=== PATIENT | female | born 1945 | race Caucasian/White ===

== ENCOUNTER → 2021-03-23 | Outpatient (CLI) | payer MEDICARE, OTHER ==
--- NOTE | 2021-03-23 11:04 | Diagnostic Imaging Report ---
Indication: Fall with right ankle pain. Time of exam: 10:50 AM 3 views of the right ankle were obtained. Alignment is normal. Ankle mortise is well maintained. Talar dome is smooth. No fracture or dislocation is identified. There is soft tissue swelling about the medial and lateral ankle. There is a large plantar calcaneal spur. Impression: Soft tissue swelling. No acute bony abnormality is detected. Dictated by: Dictated on workstation # [id number]
--- NOTE | 2021-03-23 11:18 | Diagnostic Imaging Report ---
Indication: Fall with right foot pain. Time of exam: 10:52 AM There appears to be some soft tissue swelling along the dorsum of the foot. There is a large plantar calcaneal spur. There is a lucency through the lateral and anterior portion of the cuboid, suspicious for a fracture. The metatarsals are intact. There are fractures involving multiple toes. There is a fracture at the base of the proximal phalanx of the 3rd toe, nondisplaced. There is also fracture in the proximal aspect of the proximal phalanx of the 4th toe, nondisplaced. There is an obliquely oriented fracture of the distal aspect of the proximal phalanx of the 5th toe. In addition, there is a chip type fracture at the base of the proximal phalanx of the 5th toe, medial side. IMPRESSION: 1. Fractures involving the 3rd through 5th toes, as described. 2. Questionable fracture of the cuboid. No other abnormalities are seen. Dictated by: Dictated on workstation # [id number]
--- NOTE | 2021-03-23 11:24 | Diagnostic Imaging Report ---
INDICATION: Fall with right leg pain. Time of exam 10:54 a.m. Frontal and lateral views of the right tibia and fibula were obtained. Alignment at the knee and ankle is normal. The tibia and fibula appear intact. No fractures are identified. IMPRESSION: No acute bony abnormality is detected. Dictated by: Dictated on workstation # [id number]
== END ==
LOC: RAD FS 10:32
PROVIDERS: ATTEND Nurse Practitioner Family
DX: S92.911A Unspecified fracture of right toe(s), initial encounter for closed fracture (principal); S89.91XA Unspecified injury of right lower leg, initial encounter; W19.XXXA Unspecified fall, initial encounter
CPT/HCPCS: 73590; 73610; 73630

== ENCOUNTER → 2021-04-10 | Outpatient (CLI) | payer MEDICARE, OTHER ==
--- NOTE | 2021-04-10 10:35 | Diagnostic Imaging Report ---
INDICATION: Follow-up fractures COMPARISON: 03/23/2021 FINDINGS: 3 radiographic views of the right foot were obtained. Again identified are fractures of the 3rd, 4th, and 5th proximal phalanges. There is slight displacement of the proximal medial fracture fragment of the 5th proximal phalanx. Alignment of the larger distal fracture is improved when compared to prior exam. There is no significant displacement of the 3rd or 4th phalangeal fracture fragments. Note is also made of subtle intra-articular hairline fracture of the 5th distal phalanx. There is no appreciable bridging callus formation or other evidence of significant interval healing. No new acute fracture or dislocation is seen. No unexpected radiopaque foreign bodies are identified. Soft tissue swelling is improved. IMPRESSION: 1. Redemonstration nonacute fractures of the 3rd through 5th toes as described above. Dictated by: Dictated on workstation # [id number]
== END ==
LOC: RAD FS 09:30
PROVIDERS: ATTEND Nurse Practitioner
DX: S92.511D Displaced fracture of proximal phalanx of right lesser toe(s), subsequent encounter for fracture with routine healing (principal); S92.424D Nondisplaced fracture of distal phalanx of right great toe, subsequent encounter for fracture with routine healing; X58.XXXD Exposure to other specified factors, subsequent encounter
CPT/HCPCS: 73630

== ENCOUNTER → 2021-05-04 | Outpatient (CLI) | payer MEDICARE, OTHER ==
--- NOTE | 2021-05-04 09:06 | Diagnostic Imaging Report ---
INDICATION: Fracture, followup. TECHNIQUE: 3 views of the right foot CORRELATION STUDY: 04/10/2021 FINDINGS: Comminuted, displaced fractures involving the proximal phalanges of the 3rd, 4th and 5th toes are again demonstrated. Fracture lines are still well visualized without significant interval healing from prior. The 3rd and 4th metatarsal fractures appear generally stable in their alignment. The 5th proximal phalanx fracture demonstrates perhaps slight progressive displacement along the main fracture line and some progressive retraction of the distal fracture fragment. No new bony abnormality. Some residual generalized soft tissue edema. IMPRESSION: 1. No appreciable interval healing in the proximal phalangeal fractures of the 3rd through 5th toes. May be slight progressive offset at the 5th proximal phalanx fracture. Dictated by: Dictated on workstation # [id number]
== END ==
LOC: RAD FS 08:38
PROVIDERS: ATTEND Nurse Practitioner
DX: S92.511D Displaced fracture of proximal phalanx of right lesser toe(s), subsequent encounter for fracture with routine healing (principal); S92.424D Nondisplaced fracture of distal phalanx of right great toe, subsequent encounter for fracture with routine healing; X58.XXXD Exposure to other specified factors, subsequent encounter
CPT/HCPCS: 73630

== ENCOUNTER 2021-08-02 17:37 | Inpatient (IN) | payer MEDICARE, OTHER ==
[~2021-08-02] VITALS: Ht 163 cm; Wt 93.1 kg
--- NOTE | 2021-08-02 17:56 | ED Respiratory ---
General Chief Complaint: Respiratory Problems Stated Complaint: SOB,HIGH BP,FEET SWELLING Source: patient Exam Limitations: no limitations History of Present Illness Date Seen by Provider: Aug 02, 2021 Time Seen by Provider: 17:41 Initial Comments 76yoF with PMH of DM, afib on Warfarin, HTN, HLD coming in due to SOB. Started feeling more SOB yesterday, and noticed today that feet and shins are more swollen which is abnormal. Typically improves with her diuretic but this did not help today. More SOB with ambulation today so came in to the ER. Did take her lasix today. Denies any chest pain associated with it, fever, cough, vomiting, diarrhea, focal weakness or numbness, or any other concerns. Denies any previo us history of blood clots. Unsure if she has heart failure, but she does follow with a black oxide operator in [place]. Allergies and Home Medications Allergies Coded Allergies: acetaminophen (Verified Allergy, Unknown, Shortness of Breath, 08/02/21) hydrocodone (Verified Allergy, Unknown, Shortness of Breath, 08/02/21) levofloxacin (Verified Allergy, Unknown, Shortness of Breath, 08/02/21) Nausea/vomiting, SOB propoxyphene (Verified Allergy, Unknown, Shortness of Breath, 08/02/21) codeine (Verified Adverse Reaction, Unknown, Nausea, 08/02/21) Nausea and Vomiting cyclobenzaprine (Verified Adverse Reaction, Unknown, Vomiting, 08/02/21) Nausea/Vomiting oxycodone (Verified Adverse Reaction, Unknown, Shortness of Breath, 08/02/21) Nausea/Vomiting Uncoded Allergies: IVP DYE (Allergy, Unknown, Anaphylaxis, 08/02/21) Tramado (Adverse Reaction, Unknown, Vomiting, 08/02/21) Nausea/Vomiting Patient Home Medication List Home Medication List Reviewed: Yes Review of Systems Review of Systems Constitutional: No chills, No fever EENTM: see HPI Respiratory: No cough; short of breath Cardiovascular: No chest pain, No palpitations Gastrointestinal: No abdominal pain, No diarrhea, No nausea, No vomiting Genitourinary: no symptoms reported Musculoskeletal: no symptoms reported Skin: no symptoms reported Psychiatric/Neurological: No Symptoms Reported Hematologic/Lymphatic: No Symptoms Reported Immunological/Allergic: no symptoms reported All Other Systems Reviewed Negative Unless Noted: Yes Past Uejaeor-Adbiyn-Htseek Hx Patient Social History Tobacco Use?: No Past Medical History Surgeries: Yes Section Physical Exam Vital Signs - First Documented 08/02/21 17:40 Temp 36.0 Pulse 95 Resp 35 B/P (MAP) 188/98 (128) Pulse Ox 95 O2 Delivery Nasal Cannula O2 Flow Rate 2.00 Capillary Refill : Height: '" Weight: lbs. oz. kg; BMI Method: General Appearance: WD/WN, no apparent distress Eyes: Bilateral Eye Normal Inspection HEENT: PERRL/EOMI, normal ENT inspection, pharynx normal Neck: non-tender, full range of motion, supple, normal inspection Respiratory: chest non-tender, normal breath sounds, no respiratory distress, no accessory muscle use, crackles Cardiovascular: no murmur, irregularly irregular Gastrointestinal: normal bowel sounds, non tender, soft; No guarding, No rebound Extremities: normal range of motion, non-tender, no calf tenderness, normal capillary refill, pedal edema, other (2+ edema up to the top of the shins) Neurologic/Psychiatric: no motor/sensory deficits, alert, normal mood/affect Skin: normal color, warm/dry Lymphatic: no adenopathy Progress/Results/Core Measures Suspected Sepsis SIRS Temperature: Pulse: Respiratory Rate: Laboratory Tests 08/02/21 17:52: White Blood Count 11.4H Blood Pressure / Mean: Laboratory Tests 08/02/21 17:52: Creatinine 0.84, INR Comment 3.0H, Platelet Count 358, Total Bilirubin 0.5 Results/Orders Lab Results Laboratory Tests Test 08/02/21 17:52 Range/Units White Blood Count 11.4 H 4.3-11.0 10^3/uL Red Blood Count 4.77 3.80-5.11 10^6/uL Hemoglobin 13.5 11.5-16.0 g/dL Hematocrit 41 35-52 % Mean Corpuscular Volume 86 80-99 fL Mean Corpuscular Hemoglobin 28 25-34 pg Mean Corpuscular Hemoglobin Concent 33 32-36 g/dL Red Cell Distribution Width 13.3 10.0-14.5 % Platelet Count 358 130-400 10^3/uL Mean Platelet Volume 9.4 9.0-12.2 fL Immature Granulocyte % (Auto) 0 % Neutrophils (%) (Auto) 61 42-75 % Lymphocytes (%) (Auto) 28 12-44 % Monocytes (%) (Auto) 7 0-12 % Eosinophils (%) (Auto) 3 0-10 % Basophils (%) (Auto) 1 0-10 % Neutrophils # (Auto) 7.0 1.8-7.8 X 10^3 Lymphocytes # (Auto) 3.2 1.0-4.0 X 10^3 Monocytes # (Auto) 0.8 0.0-1.0 X 10^3 Eosinophils # (Auto) 0.3 0.0-0.3 10^3/uL Basophils # (Auto) 0.1 0.0-0.1 10^3/uL Immature Granulocyte # (Auto) 0.1 0.0-0.1 10^3/uL Prothrombin Time 31.2 H 12.2-14.7 SEC INR Comment 3.0 H 0.8-1.4 Activated Partial Thromboplast Time 41 H 24-35 SEC Sodium Level 144 135-145 MMOL/L Potassium Level 4.0 3.6-5.0 MMOL/L Chloride Level 97 L 98-107 MMOL/L Carbon Dioxide Level 28 21-32 MMOL/L Anion Gap 19 H 5-14 MMOL/L Blood Urea Nitrogen 15 7-18 MG/DL Creatinine 0.84 0.60-1.30 MG/DL Estimat Glomerular Filtration Rate 66 BUN/Creatinine Ratio 18 Glucose Level 78 70-105 MG/DL Calcium Level 8.9 8.5-10.1 MG/DL Corrected Calcium 8.5-10.1 MG/DL Total Bilirubin 0.5 0.1-1.0 MG/DL Aspartate Amino Transf (AST/SGOT) 20 5-34 U/L Alanine Aminotransferase (ALT/SGPT) 12 0-55 U/L Alkaline Phosphatase 81 40-136 U/L Troponin I < 0.30 <0.30 NG/ML Pro-B-Type Natriuretic Peptide 836.0 H <75.0 PG/ML Total Protein 7.5 6.4-8.2 GM/DL Albumin 5.1 H 3.2-4.5 GM/DL My Orders Orders - MINERVA HERNÁNDEZ MD Cbc With Automated Diff (08/02/21 18:07) Comprehensive Metabolic Panel (08/02/21 18:07) Protime With Inr (08/02/21 18:07) Partial Thromboplastin Time (08/02/21 18:07) Probnp Fs (08/02/21 18:07) Troponin I Fs (08/02/21 18:07) Chest Pa/Lat (2 View) (08/02/21 18:07) Ed Iv/Invasive Line Start (08/02/21 18:07) Ekg Tracing (08/02/21 18:07) Monitor-Rhythm Ecg Trace Only (08/02/21 18:07) Furosemide Injection (Lasix Injection) (08/02/21 18:07) Nitroglycerin Ointment (Nitrobid Ointme (08/02/21 18:09) Acetaminophen Tablet (Tylenol Tablet) (08/02/21 19:30) Medications Given in ED Current Medications Medications Dose Ordered Sig/Michael Route Start Time Stop Time Status Last Admin Dose Admin Acetaminophen 1,000 mg ONCE ONCE PO 08/02/21 19:30 08/02/21 19:31 DC 08/02/21 19:32 1,000 MG Vital Signs/I&O 08/02/21 17:40 Temp 36.0 Pulse 95 Resp 35 B/P (MAP) 188/98 (128) Pulse Ox 95 O2 Delivery Nasal Cannula O2 Flow Rate 2.00 Capillary Refill : Progress Note : Progress Note 76-year-old female with above history coming in because she is short of breath. ABCs were intact and vitals were stable on presentation. She has chronic A. fib and her heart rate is in the 90s to low 100's. Blood pressure elevated. EKG without STEMI and is still in A. fib. She is rate controlled and anticoagulated and has not missed any doses of her medicines. Given Nitropaste more so for blood pressure control to see if that helps her dyspnea. She was also given IV Lasix to see if she has a better response to this. Differential includes volume overload versus atypical ACS versus pneumonia versus less likely pneumothorax versus much less likely PE given she is anticoagulated versus some other etiology. No history of lung disease and is not wheezing so will avoid any inhalers at this time. Labs significant for negative troponin, proBNP elevated greater than 800 that is consistent with volume overload and heart failure. Chest x-ray without any obvious focal abnormality such as pneumonia. Creatinine normal and electrolytes normal. She was given 40 mg of IV Lasix. Oxygen went down to high 80s and she required 2 L nasal cannula with good response to the mid 90s. Given her increased work of breathing, hypoxia, and volume overload, I believe she would benefit from a longer hospital stay with IV diuretics. Called and discussed the case with Dr. Jacobson who is willing to accept the patient and would like her to be inpatient status. ECG Initial ECG Impression Date: Aug 02, 2021 Initial ECG Impression Time: 17:42 Initial ECG Rate: 104 Initial ECG Rhythm: A Fib/Flutter Comment Atrial fibrillation, narrow QRS, normal axis, baseline wander making it difficult to interpret but there is some subtle ST depression in the lateral leads with no prior EKG to compare to Diagnostic Imaging Diagonstic Imaging: Xray Plain Films/CT/US/NM/MRI: chest Comments [facility], [place] NAME: KRISTIN DIAZ [facility] REC#: [id number] PT STATUS: REG ER : 1945 PHYSICIAN: MINERVA HERNÁNDEZ MD ADMIT DATE: 08/02/21/ER FS Draft Date of Exam:08/02/21 CHEST PA/LAT (2 VIEW) INDICATION: Shortness of breath. FINDINGS: There is mild cardiomegaly. There is some minimal discoid atelectasis in the left midlung. There is no pleural effusion, pneumothorax or pneumonia. The mediastinum is unremarkable. IMPRESSION: Cardiomegaly and some minimal discoid atelectasis and/or pneumonitis in the left midlung, otherwise unremarkable. Dictated on workstation # [id number] Dict: 08/02/211825 Trans: 08/02/21 183 [facility] [id number] Interpreted by: EDNA HA MD Electronically signed by: Departure Impression Primary Impression: CHF exacerbation Qualified Codes: I50.9 - Heart failure, unspecified Additional Impressions: Respiratory failure Qualified Codes: J96.01 - Acute respiratory failure with hypoxia Volume overload Qualified Codes: E87.70 - Fluid overload, unspecified Chronic a-fib Diabetes mellitus Qualified Codes: E11.9 - Type 2 diabetes mellitus without complications Disposition: 30 STILL A PATIENT Condition: Stable Admissions Decision to Admit Reason: Admit from ER (General) Decision to Admit/Date: Aug 02, 2021 Time/Decision to Admit Time: 19:15 Transfer Transfer Facility: Discussed with Dr. Jacobson at 20:30 who accepted her to her service as an inpatient. Method of Transfer: EMS Departure-Patient Inst. Referrals: REJI MANCILLA MD (PCP/Family) Primary Care Physician MINERVA HERNÁNDEZ MD Aug 02, 2021 17:56
[2021-08-02] MEDS ORDERED: FUROSEMIDE 40 MG/4 ML INJ (LASIX) IVP STA (18:07)
[2021-08-02] MEDS ORDERED: NITROGLYCERIN 2% OINT 1 GM UNIT DOSE PACKET TOP STA (18:09)
[2021-08-02 18:19] LABS: BASOPHILS % (AUTO) 1 % (0-10); EOSINOPHILS % (AUTO) 3 % (0-10); HEMATOCRIT 41 % (35-52); HEMOGLOBIN 13.5 g/dL (11.5-16.0); LYMPHOCYTES % (AUTO) 28 % (12-44); MEAN CORPUSCULAR HEMOGLOBIN 28 pg (25-34); MEAN CORPUSCULAR HGB CONC 33 g/dL (32-36); MEAN CORPUSCULAR VOLUME 86 fL (80-99); MEAN PLATELET VOLUME 9.4 fL (9.0-12.2); MONOCYTES % (AUTO) 7 % (0-12); NEUTROPHILS % (AUTO) 61 % (42-75); PLATELET COUNT 358 10^3/uL (130-400); WHITE BLOOD COUNT 11.4 10^3/uL (4.3-11.0)
[2021-08-02 18:20] LABS: BASOPHILS # (AUTO) 0.1 10^3/uL (0.0-0.1); EOSINOPHILS # (AUTO) 0.3 10^3/uL (0.0-0.3); LYMPHOCYTES # (AUTO) 3.2 X 10^3 (1.0-4.0); MONOCYTES # (AUTO) 0.8 X 10^3 (0.0-1.0)
[2021-08-02 18:24] LABS: PROTHROMBIN TIME PATIENT 31.2 SEC (12.2-14.7)
--- NOTE | 2021-08-02 18:35 | Diagnostic Imaging Report ---
INDICATION: Shortness of breath. FINDINGS: There is mild cardiomegaly. There is some minimal discoid atelectasis in the left midlung. There is no pleural effusion, pneumothorax or pneumonia. The mediastinum is unremarkable. IMPRESSION: Cardiomegaly and some minimal discoid atelectasis and/or pneumonitis in the left midlung, otherwise unremarkable. Dictated by: Dictated on workstation # [id number]
[2021-08-02 18:37] LABS: ALANINE AMINOTRANSFERASE 12 U/L (0-55); ALBUMIN 5.1 GM/DL (3.2-4.5); ALKALINE PHOSPHATASE 81 U/L (40-136); BILIRUBIN,TOTAL 0.5 MG/DL (0.1-1.0); BUN/CREATININE RATIO 18; CALCIUM 8.9 MG/DL (8.5-10.1); CARBON DIOXIDE 28 MMOL/L (21-32); CHLORIDE 97 MMOL/L (98-107); CREATININE SERUM 0.84 MG/DL (0.60-1.30); GFR ESTIMATED 66; GLUCOSE 78 MG/DL (70-105); SODIUM 144 MMOL/L (135-145); TOTAL PROTEIN 7.5 GM/DL (6.4-8.2)
[2021-08-02] MEDS ORDERED: ACETAMINOPHEN 500 MG TAB (TYLENOL) PO ONE (19:30)
[2021-08-02 22:23] VITALS: BP 154/81
[2021-08-02] MEDS ORDERED: CATHETER FLUSH 10 ML SYR IV PRN (22:30)
[2021-08-02] MEDS ORDERED: ALPRAZolam 0.5 MG (XANAX) TAB PO SCH (22:30)
[2021-08-02] MEDS: lisINopril 20 MG (PRINIVIL) TABLET PO SCH (22:44)
[2021-08-02 23:23] VITALS: BP 188/98
[2021-08-02] MEDS ORDERED: RT-ALBUTEROL/IPRATROPIUM 3 ML (DUONEB) VIAL INH PRN (23:30)
[2021-08-03 00:11] VITALS: BP 131/72
[2021-08-03] MEDS ORDERED: IBUPROFEN 600 MG (MOTRIN) TAB PO ONE (00:15)
[2021-08-03] MEDS ORDERED: ROSU20TA32 PO (01:03)
[2021-08-03] MEDS ORDERED: GLIP10TA13 PO (01:03)
[2021-08-03] MEDS ORDERED: PROP20TA5 PO (01:03)
[2021-08-03] MEDS ORDERED: METO50TA7 PO (01:03)
[2021-08-03] MEDS ORDERED: ALPR0.5T7 PO (01:03)
[2021-08-03] MEDS ORDERED: LISI20TA26 PO (01:03)
[2021-08-03] MEDS ORDERED: PANT40TA52 PO (01:03)
[2021-08-03] MEDS ORDERED: FURO40TA4 PO (01:03)
[2021-08-03] MEDS ORDERED: METF-397 PO (01:03)
[2021-08-03] MEDS ORDERED: DILT90TA PO (01:03)
[2021-08-03] MEDS ORDERED: SENN1TAB33 PO (01:12)
[2021-08-03] MEDS ORDERED: DIPH25TA31 PO (01:12)
[2021-08-03] MEDS ORDERED: UBID100C17 PO (01:12)
[2021-08-03] MEDS ORDERED: ALBUTEROL HFA IH (01:15)
[2021-08-03] MEDS: RT-ALBUTEROL/IPRATROPIUM 3 ML (DUONEB) VIAL INH SCH ×4 (02:25→21:31)
[2021-08-03] MEDS ORDERED: WARF-48 PO (03:06)
[2021-08-03] MEDS ORDERED: WARF4TAB3 PO (03:06)
[2021-08-03] MEDS ORDERED: INSU100I29 SQ (03:06)
[2021-08-03] MEDS ORDERED: OMEG-154 PO (03:19)
[2021-08-03 04:17] VITALS: BP 127/75
[2021-08-03] MEDS: inSUlin ASPART (NovoLOG) 1 UNIT/0.01 ML (CHARGE PER UNIT) SC SCH ×4 (05:18→21:25)
[2021-08-03 06:12] LABS: CALCIUM 8.4 MG/DL (8.5-10.1); CREATININE SERUM 0.95 MG/DL (0.60-1.30); POTASSIUM 2.8 MMOL/L (3.6-5.0)
[2021-08-03] MEDS ORDERED: FLU QUAD HIGH DOSE 240 MCG/0.7 ML 2021-22 (FLUZONE) IM ONE (06:45)
[2021-08-03] MEDS: FUROSEMIDE 40 MG/4 ML INJ (LASIX) IV SCH (07:14)
[2021-08-03] MEDS: CATHETER FLUSH 10 ML SYR IV SCH ×2 (07:15→14:54)
[2021-08-03] MEDS: KCL 20 MEQ TAB (K-DUR) PO SCH (07:16)
[2021-08-03 08:15] VITALS: BP 141/72
[2021-08-03] MEDS: meTOproloL SUCCINATE 50 MG (TOPROL XL) TAB PO SCH (08:41)
[2021-08-03] MEDS: lisINopril 20 MG (PRINIVIL) TABLET PO SCH ×2 (08:41→21:25)
[2021-08-03 11:53] VITALS: BP 126/66
--- NOTE | 2021-08-03 12:53 | Consultation-Cardiology ---
HPI-Cardiology Cardiology Consultation: Date of Consultation 08/03/2021 Date of Admission 08/02/2021 Attending Physician Henna Jacobson MD Admitting Physician Yao Hodge MD Consulting Physician ALEJANDRO FAULKNER JR, MD HPI: Time Seen by a Provider: 12:58 Chief Complaint: Reason for consultation: Heart failure. I had the pleasure of seeing Rylie in the medical unit at [facility] in [place], [place] today. She normally follows with a water system operator at [facility] in [place], [place] for permanent atrial fibrillation. She denies any previous history of heart failure or stroke. She has a long history of atrial fibrillation with several previous cardioversions the most recent of which was not successful, hypertension, hyperlipidemia, type 2 diabetes mellitus, and obesity. Two days ago she started noticing some mild swelling of her ankles. Then yesterday the swelling went all the way up to the mid thigh. She was also having shortness of breath. She became concerned and had her bring her to the emergency room in [place]. She was felt to be in heart failure and was transferred to our hospital for further treatment and evaluation. Last evening in the emergency room she was given one dose of intravenous Lasix and then another dose this morning and her lower extremity edema is nearly resolved. She is does still have some shortness of breath. She was also very dizzy yesterday. She has been having problems with her balance for the past couple of months. On two different occasions, she has lost her balance and fallen. She has not sustained any head injuries from the falls but did have ankle sprains. Yesterday, unfortunately she did not fall. She denies chest discomfort. She denies paroxysmal nocturnal dyspnea or orthopnea. From time to time she will have some palpitations with a sensation of a fluttering in her chest and she thinks this is because she is going in and out of atrial fibrillation. However, the last time she had a cardioversion was 5 years ago and she states that at that time the cardioversion failed. She denies any syncope. Because of the heart failure, a cardiology consultation was requested. Her noted that she has probably had a significant amount of sodium in her diet over the past few weeks. She used to cook all the time but now she and her get many of their meals from restaurants just for convenience. She did take Eliquis several years ago but then developed profound hematuria and was changed back to warfarin which she had taken many years ago. Certain portions of this document may have been dictated utilizing voice recognition technology. Inherent to this technology, typographical and grammatical errors may exist. As much as I am diligent to identify and correct these mistakes, some errors may remain in the document. Review of Systems-Cardiology Review of Systems Other comments Review of 10 organ systems is as per the history of present illness, otherwise negative. All Other Systems Reviewed Negative Unless Noted: Yes [id number] Hx Patient Social History Marrital Status: Smoking Status: Never a Smoker 2nd Hand Smoke Exposure: No Have you traveled recently?: No Alcohol Use?: No Pt feels they are or have been: No Past Medical History PMH As described under Assessment. Family Medical History Family Medical History: The patient does not know of any family history of premature coronary artery disease. Allergies and Home Medications Allergies Coded Allergies: acetaminophen (Verified Allergy, Unknown, Shortness of Breath, 08/02/21) hydrocodone (Verified Allergy, Unknown, Shortness of Breath, 08/02/21) levofloxacin (Verified Allergy, Unknown, Shortness of Breath, 08/02/21) Nausea/vomiting, SOB propoxyphene (Verified Allergy, Unknown, Shortness of Breath, 08/02/21) codeine (Verified Adverse Reaction, Unknown, Nausea, 08/02/21) Nausea and Vomiting cyclobenzaprine (Verified Adverse Reaction, Unknown, Vomiting, 08/02/21) Nausea/Vomiting oxycodone (Verified Adverse Reaction, Unknown, Shortness of Breath, 08/02/21) Nausea/Vomiting Uncoded Allergies: IVP DYE (Allergy, Unknown, Anaphylaxis, 08/02/21) Tramado (Adverse Reaction, Unknown, Vomiting, 08/02/21) Nausea/Vomiting Patient Home Medication List Home Medication List Reviewed: Yes Alprazolam (Alprazolam) 0.5 Mg Tablet, 0.5 MG PO HS, (Reported) Entered as Reported by: SHANNAN NEVAREZ on 08/03/21102 Last Action: Reviewed Diltiazem HCl (Diltiazem HCl) 90 Mg Tablet, 90 MG PO QID, (Reported) Entered as Reported by: SHANNAN NEVAREZ on 08/03/21102 Last Action: Reviewed Diphenhydramine HCl (Diphenhydramine HCl) 25 Mg Tablet, 25 MG PO BID, (Reported) Entered as Reported by: SHANNAN NEVAREZ on 08/03/21111 Last Action: Reviewed Furosemide (Furosemide) 40 Mg Tablet, 40 MG PO DAILY, (Reported) Entered as Reported by: SHANNAN NEVAREZ on 08/03/21102 Last Action: Reviewed Glipizide (Glipizide) 10 Mg Tablet, 10 MG PO BID, (Reported) Entered as Reported by: SHANNAN NEVAREZ on 08/03/21102 Last Action: Reviewed Insulin Detemir (Levemir Flextouch) 100 Unit/1 Ml Insuln.pen, 40 UNITS SQ HS, (Reported) Entered as Reported by: SHANNAN NEVAREZ on 08/03/21305 Last Action: Converted Lisinopril (Lisinopril) 20 Mg Tablet, 20 MG PO BID, (Reported) Entered as Reported by: SHANNAN NEVAREZ on 08/03/21102 Last Action: Reviewed Metformin HCl (Metformin HCl) 500 Mg Tablet, 1,000 MG PO BID, (Reported) Entered as Reported by: SHANNAN NEVAREZ on 08/03/21102 Last Action: Reviewed Metoprolol Succinate (Metoprolol Succinate) 50 Mg Tab.er.24h, 50 MG PO DAILY, (Reported) Entered as Reported by: SHANNAN NEVAREZ on 08/03/21102 Last Action: Reviewed Ovando-3S/Dha/Epa/Fish Oil (Fish Oil Ovando-3 Softgel) 1 Each Capsule.dr, 1 EACH PO BID, (Reported) Entered as Reported by: SHANNAN NEVAREZ on 08/03/21318 Last Action: Reviewed Pantoprazole Sodium (Pantoprazole Sodium) 40 Mg Tablet.dr, 40 MG PO DAILY, (Reported) Entered as Reported by: SHANNAN NEVAREZ on 08/03/21102 Last Action: Reviewed Propranolol HCl (Propranolol HCl) 20 Mg Tablet, 20 MG PO TID, (Reported) Entered as Reported by: SHANNAN NEVAREZ on 08/03/21102 Last Action: Reviewed Rosuvastatin Calcium (Rosuvastatin Calcium) 20 Mg Tablet, 20 MG PO DAILY, (Reported) Entered as Reported by: SHANNAN NEVAREZ on 08/03/21102 Last Action: Continued Sennosides/Docusate Sodium (Sennosides-Docusate Sodium Tab) 1 Each Tablet, 2-4 TAB PO DAILY PRN for CONSTIPATION-1ST LINE, (Reported) Entered as Reported by: SHANNAN NEVAREZ on 08/03/21111 Last Action: Edited Ubidecarenone (Coq-10) 100 Mg Capsule, 100 MG PO DAILY, (Reported) Entered as Reported by: SHANNNA NEVAREZ on 08/03/21111 Last Action: Reviewed Warfarin Sodium (Warfarin Sodium) 5 Mg Tablet, 5 MG PO DAILY, (Reported) Entered as Reported by: SHANNAN NEVAREZ on 08/03/21305 Last Action: Reviewed Warfarin Sodium (Warfarin Sodium) 4 Mg Tablet, 2 MG PO DAILY, (Reported) Entered as Reported by: SHANNAN NEVAREZ on 08/03/21305 Last Action: Reviewed [Albuterol Hfa] , 2 PUFF IH Q6H PRN for SHORTNESS OF BREATH, (Reported) Entered as Reported by: SHANNAN NEVAREZ on 08/03/21114 Last Action: Reviewed Exam Vital Signs Vital Signs Date Time Temp Pulse Resp B/P (MAP) Pulse Ox O2 Delivery O2 Flow Rate FiO2 08/03/21 12:12 82 08/03/21 11:53 36.6 16 126/66 (86) 95 Nasal Cannula 2.00 Physical Exam General: Alert. No acute distress. Well nourished and appears stated age. She is obese. Eye: Extraocular movements are intact. Conjunctivae are clear. There are no xanthelasma. HENT: Normocephalic. Atraumatic. Carotid pulsations 2/2 without bruits. Neck: Jugular venous pressure does not appear elevated. No thyromegaly appreci ated. Respiratory: Lungs are clear to auscultation. Respirations are non-labored. Breath sounds are equal. Symmetrical chest wall expansion. Cardiovascular: Normal rate. Irregular rhythm. No murmur. No gallop. Point of maximal impulse is not appear displaced. Good pulses equal in all extremities. 1+ bilateral pretibial edema, more evident in her feet and ankles. Gastrointestinal: Soft. Normal bowel sounds. Skin: Skin turgor is normal. There is no pallor. Musculoskeletal: No kyphosis or scoliosis appreciated. Neurologic: Alert and oriented to person, place, time. Cranial nerves 3-12 appear grossly intact. The patient has good motor tone strength in the upper and lower extremities bilaterally. Psychiatric: Cooperative. Appropriate mood & affect. Labs Laboratory Tests Test 08/02/21 17:52 08/02/21 22:45 08/03/21 05:16 08/03/21 05:48 Range/Units White Blood Count 11.4 H 4.3-11.0 10^3/uL Red Blood Count 4.77 3.80-5.11 10^6/uL Hemoglobin 13.5 11.5-16.0 g/dL Hematocrit 41 35-52 % Mean Corpuscular Volume 86 80-99 fL Mean Corpuscular Hemoglobin 28 25-34 pg Mean Corpuscular Hemoglobin Concent 33 32-36 g/dL Red Cell Distribution Width 13.3 10.0-14.5 % Platelet Count 358 130-400 10^3/uL Mean Platelet Volume 9.4 9.0-12.2 fL Immature Granulocyte % (Auto) 0 % Neutrophils (%) (Auto) 61 42-75 % Lymphocytes (%) (Auto) 28 12-44 % Monocytes (%) (Auto) 7 0-12 % Eosinophils (%) (Auto) 3 0-10 % Basophils (%) (Auto) 1 0-10 % Neutrophils # (Auto) 7.0 1.8-7.8 X 10^3 Lymphocytes # (Auto) 3.2 1.0-4.0 X 10^3 Monocytes # (Auto) 0.8 0.0-1.0 X 10^3 Eosinophils # (Auto) 0.3 0.0-0.3 10^3/uL Basophils # (Auto) 0.1 0.0-0.1 10^3/uL Immature Granulocyte # (Auto) 0.1 0.0-0.1 10^3/uL Prothrombin Time 31.2 H 12.2-14.7 SEC INR Comment 3.0 H 0.8-1.4 Activated Partial Thromboplast Time 41 H 24-35 SEC Sodium Level 144 142 135-145 MMOL/L Potassium Level 4.0 2.8 L 3.6-5.0 MMOL/L Chloride Level 97 L 98 98-107 MMOL/L Carbon Dioxide Level 28 29 21-32 MMOL/L Anion Gap 19 H 15 H 5-14 MMOL/L Blood Urea Nitrogen 15 17 7-18 MG/DL Creatinine 0.84 0.95 0.60-1.30 MG/DL Estimat Glomerular Filtration Rate 66 57 BUN/Creatinine Ratio 18 18 Glucose Level 78 71 70-105 MG/DL Calcium Level 8.9 8.4 L 8.5-10.1 MG/DL Corrected Calcium 8.5-10.1 MG/DL Total Bilirubin 0.5 0.1-1.0 MG/DL Aspartate Amino Transf (AST/SGOT) 20 5-34 U/L Alanine Aminotransferase (ALT/SGPT) 12 0-55 U/L Alkaline Phosphatase 81 40-136 U/L Troponin I < 0.30 <0.30 NG/ML Pro-B-Type Natriuretic Peptide 836.0 H <75.0 PG/ML Total Protein 7.5 6.4-8.2 GM/DL Albumin 5.1 H 3.2-4.5 GM/DL Glucometer 71 87 70-110 MG/DL Test 08/03/21 10:09 Range/Units Glucometer 176 H 70-110 MG/DL Radiology ECHOCARDIOGRAM (08/03/2021): 1. This is a technically difficult study due to poor image quality in the apical views. 2. Left ventricle: The cavity size is normal. There is mild concentric hypertrophy. Systolic function is normal. The estimated ejection fraction is 60- 65%. There were no regional wall motion abnormalities identified. The left ventricular diastolic function is indeterminate. 3. Left atrium: The left atrium is severely dilated with a 2 chamber volume of 94 ml. 4. Right atrium: The right atrium is mildly dilated with an area of 18 cm. 5. Mitral valve: There is mild regurgitation. 6. Pulmonary arteries: The estimated pulmonary artery systolic pressure is 38 mmHg assuming a right atrial pressure of 5 mmHg. ECG Impression ECG Comment Atrial fibrillation with a controlled ventricular rate with nonspecific ST changes. Diagnosis/Problems Diagnosis/Problems (1) Acute diastolic congestive heart failure Assessment & Plan: This appears to be a new diagnosis for the patient. She has a normal ejection fraction. Her symptoms are markedly improved with two doses of intravenous furosemide. I would suggest watching her in the hospital for one more night and she may be ready for discharge tomorrow. I also educated her about excessive sodium in her diet which could increase the risk of recurrent episodes of heart failure. (2) Permanent atrial fibrillation Status: Chronic Assessment & Plan: She has permanent atrial fibrillation. Her left atrium is severely dilated on her echocardiogram which suggests that she would likely not be a good candidate for antiarrhythmic drugs or ablation. Her heart rates appear well-controlled on beta-tony. I recommend she continue the beta- tony for rate control and warfarin for stroke prophylaxis. (3) Pulmonary hypertension Assessment & Plan: I suspect this is multifactorial due to underlying heart disease, her obesity and likely undiagnosed sleep apnea. This can be followed by her regular water system operator after discharge. (4) Primary hypertension Assessment & Plan: Resume outpatient antihypertensive medication and follow her blood pressures in the hospital. (5) Mixed hyperlipidemia Assessment & Plan: Continue statin medication. (6) Chronic kidney disease, stage 3 Assessment & Plan: Continue AMRITA inhibitor and watch the renal function closely with the intravenous diuretic. (7) Type 2 diabetes mellitus with complication Assessment & Plan: This will be managed by the hospitalist. (8) Obesity Assessment & Plan: She needs to work on weight loss. ALEJANDRO FAULKNER JR, MD Aug 03, 2021 12:53
--- NOTE | 2021-08-03 14:41 | History & Physical ---
KARLOS MOREAU 08/03/21 1441: HPI History of Present Illness: Rylie, goes by Barrett, is a 76 year old female who presents with shortness of breath and leg swelling. Yesterday during the day she started to feel unwell. She was experiencing some shortness of breath, racing heart, and some leg swelling spanning her knee to her feet. She went out to eat, and when she left her home to leave she had difficulty lifting her legs into the car; she had to be assisted. Upon arriving home she began to feel more ill. Her legs presented with increased swelling, pain with movement of her knees and toes, shortness of breath, and a feeling of loss of balance. She went to the restroom and could not get up. She called her niece who is a nurse, and she came over and took her blood pressure. She states she thinks it was ~200s/80s. They called an ambulance and was then admitted. She reports a history of falling, falling once in February and once in the beginning of June. With the February fall she broke four toes and recovered well. With the June fall she twisted her back. When falling, she states that her legs gave out under her, she did not fall forward or backward. States her legs felt like rubber. She also has developed a tremor that has progressed slowly over time. Reports tremor is more present with action/movement. Tremor of arms/hands; has not noticed leg involvement. Reports a PMHx of atrial fibrillation, kidney problems, and urine retention. 5-6 years ago she was cardioverted for her atrial fibrillation; has not been cardioverted since. Reports her a fib is well controlled with home medications. Denies recent change in diet, does report some soda and tea consumption recently. Denies chest pain, nausea, vomiting, or diarrhea. Source: patient, family ( and son) Exam Limitations: no limitations Date seen by provider: Aug 03, 2021 Time Seen by Provider: 11:30 Attending Physician Alexa Crawford MD PCP Yao Hodge MD Consult Date of Admission Aug 02, 2021 at 19:45 Home Medications Home Medications Reviewed patient Home Medication Reconciliation performed by pharmacy medication reconciliations it field technician and/or nursing. Patients Allergies have been reviewed. Allergies Coded Allergies: acetaminophen (Verified Allergy, Unknown, Shortness of Breath, 08/02/21) hydrocodone (Verified Allergy, Unknown, Shortness of Breath, 08/02/21) levofloxacin (Verified Allergy, Unknown, Shortness of Breath, 08/02/21) Nausea/vomiting, SOB propoxyphene (Verified Allergy, Unknown, Shortness of Breath, 08/02/21) codeine (Verified Adverse Reaction, Unknown, Nausea, 08/02/21) Nausea and Vomiting cyclobenzaprine (Verified Adverse Reaction, Unknown, Vomiting, 08/02/21) Nausea/Vomiting oxycodone (Verified Adverse Reaction, Unknown, Shortness of Breath, 08/02/21) Nausea/Vomiting Uncoded Allergies: IVP DYE (Allergy, Unknown, Anaphylaxis, 08/02/21) Tramado (Adverse Reaction, Unknown, Vomiting, 08/02/21) Nausea/Vomiting [id number] Hx Patient Social History Marrital Status: Alcohol Use?: No Have you traveled recently?: No Past Medical History Atrial fibrillation Kidney dysfunction Urine retention Falls Review of Systems ([facility]) Constitutional: No chills, No fever EENTM: No hearing loss, No vision loss Respiratory: short of breath Cardiovascular: No chest pain; edema (edema of knees, lower legs, and feet bilaterally), other (racing heart) Gastrointestinal: No no symptoms reported, No abdominal pain, No nausea, No vomiting Genitourinary: see HPI : No Musculoskeletal: joint swelling (bilateral knee edema) Skin: no symptoms reported Psychiatric/Neurological: Denies Headache; Tremors (tremors of arms/hands), Weakness (leg weakness) All Other Systems Reviewed Negative Unless Noted: Yes Physical Exam-([facility]) Physical Exam Vital Signs VS - Last 72 Hours, by Label 08/02/21 08/02/21 08/02/21 08/02/21 17:40 21:10 21:45 22:23 Temp 36.0 36.5 Pulse 95 84 94 Resp 35 17 20 B/P (MAP) 188/98 (128) 121/90 154/81 (105) Pulse Ox 95 97 97 O2 Delivery Nasal Cannula Nasal Cannula Nasal Cannula Nasal Cannula O2 Flow Rate 2.00 2.00 2.00 2.00 08/02/21 08/02/21 08/03/21 08/03/21 23:23 23:28 00:11 01:00 Temp 36.0 36.6 Pulse 95 73 83 60 Resp 18 B/P (MAP) 131/72 (91) Pulse Ox 95 94 O2 Delivery Nasal Cannula O2 Flow Rate 2.00 08/03/21 08/03/21 08/03/21 08/03/21 02:26 04:17 06:58 08:00 Temp 36.2 Pulse 82 95 Resp 18 B/P (MAP) 127/75 (92) Pulse Ox 94 96 96 O2 Delivery Nasal Cannula Nasal Cannula Nasal Cannula O2 Flow Rate 2.00 2.00 2.00 08/03/21 08/03/21 08/03/21 08/03/21 08:15 11:09 11:53 12:12 Temp 36.7 36.6 Pulse 89 72 82 Resp 16 16 B/P (MAP) 141/72 (95) 126/66 (86) Pulse Ox 96 93 95 O2 Delivery Nasal Cannula Nasal Cannula Nasal Cannula O2 Flow Rate 2.00 2.00 2.00 08/03/21 15:23 Pulse Ox 95 O2 Delivery Nasal Cannula O2 Flow Rate 2.00 Capillary Refill : Less Than 3 Seconds General Appearance: no apparent distress HEENT: PERRL/EOMI, pharynx normal Neck: non-tender, supple; No lymphadenopathy (R), No lymphadenopathy (L), No tender lateral Respiratory: chest non-tender, lungs clear, normal breath sounds, no respiratory distress, no accessory muscle use Cardiovascular: no gallop, no murmur, irregularly irregular, other (regular rate) Peripheral Pulses: 2+ Carotid (R), 2+ Carotid (L), 2+ Dorsalis Pedis (R), 2+ Left Dors-Pedis (L) Gastrointestinal: normal bowel sounds, non tender, soft, no organomegaly Extremities: pedal edema, swelling (swelling of knees, lower legs, and feet) Neurologic/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 Begin IV lasix for fluid control. Monitor for urinary retention, insert a sanchez catheter if needed. Monitor blood pressure and peripheral edema. Continue home medications for blood pressure management; metoprolol 50mg and lisinopril 20mg. Begin PT to help with lower extremity strength and movement. Continue nasal cannula oxygen supplementation as patient requires. Continue breathing treatments of albuterol/ipratropium. Qualifiers: Qualified Codes: I50.9 - Heart failure, unspecified (2) Permanent atrial fibrillation Status: Chronic Assessment & Plan: Continue home medications for atrial fibrillation control and DVT prophylaxis; diltiazem 90mg and warfarin. (3) Tremor Assessment & Plan: Suspected essential tremor. Some tremor at rest. Tremor is present with activity. Follow-up in out-patient setting. ALEXA CRAWFORD MD 08/03/21 1630: Home Medications Allergies Coded Allergies: acetaminophen (Verified Allergy, Unknown, Shortness of Breath, 08/02/21) hydrocodone (Verified Allergy, Unknown, Shortness of Breath, 08/02/21) levofloxacin (Verified Allergy, Unknown, Shortness of Breath, 08/02/21) Nausea/vomiting, SOB propoxyphene (Verified Allergy, Unknown, Shortness of Breath, 08/02/21) codeine (Verified Adverse Reaction, Unknown, Nausea, 08/02/21) Nausea and Vomiting cyclobenzaprine (Verified Adverse Reaction, Unknown, Vomiting, 08/02/21) Nausea/Vomiting oxycodone (Verified Adverse Reaction, Unknown, Shortness of Breath, 08/02/21) Nausea/Vomiting Uncoded Allergies: IVP DYE (Allergy, Unknown, Anaphylaxis, 08/02/21) Tramado (Adverse Reaction, Unknown, Vomiting, 08/02/21) Nausea/Vomiting Physical Exam-([facility]) Physical Exam General Appearance: no apparent distress HEENT: PERRL/EOMI, pharynx normal Respiratory: lungs clear, normal breath sounds, no respiratory distress Cardiovascular: no murmur, irregularly irregular Gastrointestinal: normal bowel sounds, non tender, soft Extremities: pedal edema (trace) Neurologic/Psychiatric: 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 I directed the plan of care as documented by the medical student. KARLOS MOREAU Aug 03, 2021 14:41 ALEXA CRAWFORD MD Aug 03, 2021 16:30
[2021-08-03] MEDS ORDERED: ACET-2267 PO (15:04)
[2021-08-03] MEDS ORDERED: CALC-151 PO (15:04)
[2021-08-03] MEDS ORDERED: RT-ALBUINH INH (15:04)
[2021-08-03 16:25] VITALS: BP 159/90
[2021-08-03] MEDS ORDERED: SENNA W/DOCUSATE (SENOKOT S) TABLET PO PRN (16:45)
[2021-08-03] MEDS ORDERED: ACETAMINOPHEN 500 MG TAB (TYLENOL) PO PRN (16:45)
[2021-08-03] MEDS ORDERED: DILTIAZEM HCL 90 MG PO SCH (17:00)
[2021-08-03] MEDS: metFORMIN 500 MG (GLUCOPHAGE) TAB PO SCH (17:47)
[2021-08-03] MEDS ORDERED: warFARin 4 MG (COUMADIN) TAB PO SCH (18:00)
[2021-08-03] MEDS ORDERED: warFARin 3 MG (COUMADIN) TAB PO SCH (18:00)
[2021-08-03 20:23] VITALS: BP 131/89
[2021-08-03] MEDS: ALPRAZolam 0.5 MG (XANAX) TAB PO PRN (21:29)
[2021-08-04] VITALS (7 sets, daily range): BP systolic 124–156; BP diastolic 60–84
[2021-08-04] MEDS: CATHETER FLUSH 10 ML SYR IV SCH ×4 (00:19→21:53)
[2021-08-04] MEDS: RT-ALBUTEROL/IPRATROPIUM 3 ML (DUONEB) VIAL INH SCH ×4 (02:54→21:14)
[2021-08-04 05:25] LABS: HEMATOCRIT 35 % (35-52); HEMOGLOBIN 11.3 g/dL (11.5-16.0); MEAN CORPUSCULAR HEMOGLOBIN 29 pg (25-34); MEAN CORPUSCULAR HGB CONC 33 g/dL (32-36); MEAN CORPUSCULAR VOLUME 87 fL (80-99); MEAN PLATELET VOLUME 9.3 fL (9.0-12.2); PLATELET COUNT 209 10^3/uL (130-400)
[2021-08-04 05:46] LABS: CALCIUM 8.2 MG/DL (8.5-10.1); CREATININE SERUM 0.86 MG/DL (0.60-1.30); POTASSIUM 2.9 MMOL/L (3.6-5.0)
[2021-08-04] MEDS: inSUlin ASPART (NovoLOG) 1 UNIT/0.01 ML (CHARGE PER UNIT) SC SCH ×4 (05:48→20:32)
[2021-08-04] MEDS: FUROSEMIDE 40 MG/4 ML INJ (LASIX) IV SCH (06:22)
[2021-08-04] MEDS: KCL 20 MEQ TAB (K-DUR) PO SCH (06:22)
[2021-08-04] MEDS: ROSUVASTATIN 20 MG (CRESTOR) TABLET PO SCH (08:10)
[2021-08-04] MEDS: PANTOPRAZOLE 40 MG (PROTONIX) TAB PO SCH (08:10)
[2021-08-04] MEDS: metFORMIN 500 MG (GLUCOPHAGE) TAB PO SCH ×2 (08:10→17:55)
[2021-08-04] MEDS: lisINopril 20 MG (PRINIVIL) TABLET PO SCH ×2 (08:10→20:58)
[2021-08-04] MEDS: meTOproloL SUCCINATE 50 MG (TOPROL XL) TAB PO SCH (08:10)
[2021-08-04] MEDS ORDERED: KCL 20 MEQ TAB (K-DUR) PO ONE (09:30)
[2021-08-04] MEDS ORDERED: NS IV 500 ML 500 ML IV ONE (09:45)
[2021-08-04] MEDS: POTASSIUM CL 10MEQ/50ML IVPB 50 ML IV SCH ×3 (09:45→11:51)
--- NOTE | 2021-08-04 10:00 | Cardiology Progress Note ---
Progress Note-Cardiology Events since last exam Date Seen by Provider: Aug 04, 2021 Time Seen by Provider: 09:54 Events since last exam I am seeing her due to heart failure. Her peripheral edema has almost compl etely resolved. She still has some dyspnea on exertion which she feels as though is slightly worse than her baseline. She denies chest discomfort, palpitations, or syncope. Certain portions of this document may have been dictated utilizing voice recognition technology. Inherent to this technology, typographical and grammatical errors may exist. As much as I am diligent to identify and correct these mistakes, some errors may remain in the document. Vitals Last set of Vitals Signs Vital Signs 08/04/21 08/04/21 08/04/21 08:00 08:08 08:12 Temp 35.3 Pulse 72 Resp 16 B/P (MAP) 129/62 (84) Pulse Ox 96 O2 Delivery Nasal Cannula O2 Flow Rate 2.00 Labs Labs Laboratory Tests 08/04/21 05:15 Exam Vital Signs Vital Signs Date Time Temp Pulse Resp B/P (MAP) Pulse Ox O2 Delivery O2 Flow Rate FiO2 08/04/21 08:12 96 Nasal Cannula 2.00 08/04/21 08:08 72 16 129/62 (84) 08/04/21 08:00 35.3 Physical Exam General: Alert. No acute distress. She is obese. She is tremulous. Eye: No xanthelasma. HENT: Normocephalic. Neck: Jugular venous pressure does not appear elevated. Respiratory: Lungs have slight crackles at the right base, otherwise clear. Respirations are non-labored. Breath sounds are equal. Symmetrical chest wall expansion. Cardiovascular: Normal rate. Irregular rhythm. No murmur. No gallop. Trace bilateral pretibial edema. Gastrointestinal: Soft. Normal bowel sounds. Skin: Warm. Dry. Neurologic: Alert and oriented to person, place, time. Cranial nerves 3-11 grossly intact. Baseline tremor, mainly of her hands. Psychiatric: Cooperative. Appropriate mood & affect. Labs Laboratory Tests Test 08/03/21 10:09 08/03/21 16:31 08/03/21 20:27 08/04/21 05:15 Range/Units Glucometer 176 H 112 H 158 H 70-110 MG/DL White Blood Count 6.0 4.3-11.0 10^3/uL Red Blood Count 3.97 3.80-5.11 10^6/uL Hemoglobin 11.3 L 11.5-16.0 g/dL Hematocrit 35 35-52 % Mean Corpuscular Volume 87 80-99 fL Mean Corpuscular Hemoglobin 29 25-34 pg Mean Corpuscular Hemoglobin Concent 33 32-36 g/dL Red Cell Distribution Width 13.2 10.0-14.5 % Platelet Count 209 130-400 10^3/uL Mean Platelet Volume 9.3 9.0-12.2 fL Sodium Level 144 135-145 MMOL/L Potassium Level 2.9 L 3.6-5.0 MMOL/L Chloride Level 99 98-107 MMOL/L Carbon Dioxide Level 30 21-32 MMOL/L Anion Gap 15 H 5-14 MMOL/L Blood Urea Nitrogen 19 H 7-18 MG/DL Creatinine 0.86 0.60-1.30 MG/DL Estimat Glomerular Filtration Rate 64 BUN/Creatinine Ratio 22 Glucose Level 105 70-105 MG/DL Calcium Level 8.2 L 8.5-10.1 MG/DL Diagnosis/Problems Diagnosis/Problems (1) Acute diastolic congestive heart failure Assessment & Plan: This appears to be a new diagnosis for the patient. She has a normal ejection fraction. Her symptoms continue to improve with intravenous furosemide. I will obtain a follow-up chest x-ray today. Her creatinine is stable despite the intravenous Lasix. I again educated her about excessive sodium in her diet which could increase the risk of recurrent episodes of heart failure. (2) Permanent atrial fibrillation Status: Chronic Assessment & Plan: She has permanent atrial fibrillation. Her heart rates appear well-controlled on beta-tony and diltiazem. I recommend she continue the beta-tony and diltiazem for rate control and warfarin for stroke prophylaxis. Her left atrium is severely dilated on her echocardiogram from 08/03/2021 which suggests she would likely not be a good candidate for antiarrhythmic drugs or ablation. (3) Pulmonary hypertension Assessment & Plan: I suspect this is multifactorial due to underlying heart disease, her obesity and likely undiagnosed sleep apnea. This can be followed by her regular mule rider after discharge. (4) Primary hypertension Assessment & Plan: Blood pressures are reasonably well controlled on her outpatient antihypertensive medication. (5) Mixed hyperlipidemia Assessment & Plan: Continue statin medication. (6) Chronic kidney disease, stage 3 Assessment & Plan: Continue AMRITA inhibitor and watch the renal function closely with the intravenous diuretic. Her creatinine actually improved slightly over the past 24 hours. (7) Type 2 diabetes mellitus with complication Assessment & Plan: This will be managed by the hospitalist. (8) Obesity Assessment & Plan: She needs to work on weight loss. ALEJANDRO FAULKNER JR, MD Aug 04, 2021 10:00
--- NOTE | 2021-08-04 11:21 | Diagnostic Imaging Report ---
INDICATION: Dyspnea. COMPARISON: 08/02/2021 TECHNIQUE: Frontal and lateral radiographs of the chest dated 08/04/2021. FINDINGS: The cardiac silhouette is mildly enlarged, though stable. No significant pulmonary vascular congestion. Linear interstitial opacities are again identified within the left mid and lower lung, appearing slightly worsened since the prior examination, particularly on the lateral radiographs. The right lung appears clear. No large-volume pleural effusion. No pneumothorax. No acute osseous abnormality with mild scattered osseous degenerative changes. Background vascular calcifications are present. IMPRESSION: Slightly worsening atelectasis and/or pneumonitis within the left lung base. Stable mild cardiomegaly without significant pulmonary vascular congestion. Dictated by: Dictated on workstation # [id number]
[2021-08-04] MEDS: MAGNESIUM 1 GM/100 ML IVPB 100 ML IV SCH ×3 (11:41→13:40)
--- NOTE | 2021-08-04 14:10 | Physical Therapy Evaluation ---
PT Evaluation-General Medical Diagnosis Admission Date Aug 02, 2021 at 19:45 Medical Diagnosis: CHF Onset Date: Aug 02, 2021 Therapy Diagnosis Therapy Diagnosis: debility/weakness Precautions Precautions/Isolations: Fall Prevention, Standard Precautions, Pressure Ulcer Referral Physician: Kavon Reason for Referral: Evaluation/Treatment Medical History Pertinent Medical History: Atrial Fib, DM, HTN Current History ER secondary to SOA and bilateral LE edema Reviewed History: Yes Social History Home: Single Level Current Living Status: Spouse Entry Into Home: Stairs With Railing PT Steps Into Home: 4 Prior Prior Level of Function SCALE: Activities may be completed with or without assistive devices. 1-Qnnnxhbgzf-qyllcga completes the activity by him/herself with no assistance from a helper. 5-Set-up or Clean-up Assistance-helper sets up or cleans up; patient completes activity. Gilmore assists only prior to or following the activity. 4-Supervision or Touching Assistance-helper provides verbal cues and/or touching/steadying and/or contact guard assistance as patient completes activity . Assistance may be provided throughout the activity or intermittently. 3-Partial/Moderate Assistance-helper does LESS THAN HALF the effort. Gilmore lifts, holds or supports trunk or limbs, but provides less than half the effort. 2-Substantial/Maximal Assistance-helper does MORE THAN HALF the effort. Gilmore lifts or holds trunk or limbs and provides more than half the effort. 9-Zcciuiyht-yppald does ALL the effort. Patient does none of the effort to complete the activity. Or, the assistance of 2 or more helpers is required for the patient to complete the activity. If activity was not attempted, code reason: 7-Patient Refused. 9-Not Applicable-not attempted and the patient did not perform the activity before the current illness, exacerbation or injury. 10-Not Attempted due to Environmental Limitations-(lack of equipment, weather restraints, etc.). 88-Not Attempted due to Medical Conditions or Safety Concerns. Bed Mobility: 5 Transfers (B,C,W/C): 5 Gait: 5 Stairs: 5 Indoor Mobility (Ambulation): Independent Stairs: Needed Some Help Prior Devices Use: None PT Evaluation-Current Subjective Patient declined FWW use at home and spouse confirms. Patient also reports multiple falls at home. Objective Patient Orientation: Normal For Age Attachments: Oxygen, IV ROM/Strength ROM Lower Extremities bilateral LE WFL Strength Lower Extremities 3/5 grossly bilateral LE Integumentary/Posture Bowel Incontinence: No Bladder Incontinence: No Posture WFL Neuromuscular (Tone, Coordination, Reflexes) noted tremors/grossly intact Sensory Vision: Functional Hearing: Functional Transfers Roll Left to Right (QC): 4 Sit to Lying (QC): 4 Lying to Sitting/Side of Bed(Q: 4 Sit to Stand (QC): 4 Chair/Auf-ch-Fkvgy Xfer(QC): 4 Gait Does the Patient Walk?: Yes Mode of Locomotion: Walk Anticipated Mode of Locomotion: Walk Walk 10 feet (QC): 4 Walk 50 ft with 2 Turns(QC): 4 Walk 150 ft (QC): 4 Distance: 150' Gait Assistive Device: FWW Comments/Gait Description safe and functional with no deviation Balance Sitting Static: Normal Sitting Dynamic: Normal Standing Static: Normal Standing Dynamic: Normal Assessment/Needs 76 y.o. female, will be seen short term by skilled PT to address functional strength and mobility to ensure safe return to home with spouse at maximum LOF. Rehab Potential: Fair PT Volumetric Weigher Goals Senior Care Goals PT Senior Care Goals Time Frame: Aug 12, 2021 Roll Left & Right (QC): 6 Sit to Lying (QC): 6 Lying-Sitting on Side/Bed(QC): 6 Sit to Stand (QC): 6 Chair/Uzg-bj-Swugl Xfer(QC): 6 Toilet Transfer (QC): 6 Walk 10 feet (QC): 6 Walk 50ft with 2 Turns (QC): 6 Walk 150 ft (QC): 6 PT Plan Problem List Problem List: Activity Tolerance, Functional Strength, Other (pulmonary function with activity) Treatment/Plan Treatment Plan: Continue Plan of Care Treatment Plan: Bed Mobility, Education, Functional Activity Leo, Functional Strength, Gait, Safety, Therapeutic Exercise, Transfers Treatment Duration: Aug 12, 2021 Frequency: 6 times per week Estimated Hrs Per Day: .25 hour per day Patient and/or Family Agrees t: Yes Time/GCodes Time In: 1346 Time Out: 1400 Total Billed Treatment Time: 14 Total Billed Treatment 1 visit EVModC 14 min ANGELITO DOBBINS PT Aug 04, 2021 14:10
--- NOTE | 2021-08-04 16:06 | Progress Note ---
KARLOS MOREAU 08/04/21 1606: Subjective Subjective/Events-last exam Barrett reports that she is feeling much better today. She is ambulating well with a walker and/or assistance. She reports that the swelling of her legs and feet have decreased since yesterday. She states that her toes are still in pain and swollen; it is uncomfortable to bend them still. She is still having shortness of breath with exertion but states that it is better today than yesterday. The breathing treatments and supplemental oxygen seems to help. She reports no pain elsewhere. Reports that she fell asleep with a fan blowing on her face/head is is feeling a little congested today. Review of Systems General: No Chills HEENT: No Head Aches Pulmonary: Other (Shortness of breath on exertion) Cardiovascular: Edema (Edema of toes bilaterally) Objective Exam Last Set of Vital Signs Vital Signs Date Time Temp Pulse Resp B/P (MAP) Pulse Ox O2 Delivery O2 Flow Rate FiO2 08/04/21 15:19 35.8 50 19 124/60 (81) 98 Nasal Cannula 2.00 Capillary Refill : Less Than 3 Seconds I&O Intake and Output 08/04/21 00:00 Intake Total 2800 ml Output Total 1950 ml Balance 850 ml Intake Oral 2800 ml Output Urine Total 1750 ml Post Void Residual 200 ml # Bowel Movements 1 General: Alert, Cooperative, No Acute Distress HEENT: Atraumatic Lungs: Clear to Auscultation, Normal Air Movement Heart: Regular Rate, Other (Irregularly irregular rhythm) Abdomen: Normal Bowel Sounds, Soft, Other (Mild tenderness of RLQ upon palpation) Extremities: Normal Pulses (pedal pulses +2 bilaterally), Other (tenderness and swelling of toes bilaterally) Neuro: Normal Speech Psych/Mental Status: Mental Status NL, Mood NL Results/Procedures Lab Laboratory Tests 08/03/21 16:31: Glucometer 112H 08/03/21 20:27: Glucometer 158H 08/04/21 05:15: White Blood Count 6.0, Red Blood Count 3.97, Hemoglobin 11.3L, Hematocrit 35, Mean Corpuscular Volume 87, Mean Corpuscular Hemoglobin 29, Mean Corpuscular Hemoglobin Concent 33, Red Cell Distribution Width 13.2, Platelet Count 209, Mean Platelet Volume 9.3, Sodium Level 144, Potassium Level 2.9L, Chloride Level 99, Carbon Dioxide Level 30, Anion Gap 15H, Blood Urea Nitrogen 19H, Creatinine 0.86, Estimat Glomerular Filtration Rate 64, BUN/Creatinine Ratio 22, Glucose Level 105, Calcium Level 8.2L, Phosphorus Level 4.1, Magnesium Level 1.1*L 08/04/21 10:24: Glucometer 233H 08/04/21 15:22: Glucometer 129H Assessment/Plan Assessment/Plan Admission Dx CHF exacerbation Admission Status: Inpatient Order (span 2 midnights) Reason for Inpatient Admission: CHF exacerbation (1) CHF exacerbation Status: Acute Assessment & Plan: Complete an echocardiogram to assess heart function. Begin IV lasix for fluid control. Monitor for urinary retention, insert a sanchez catheter if needed. Monitor blood pressure and peripheral edema. Continue home medications for blood pressure management; metoprolol 50mg and lisinopril 20mg. Begin PT to help with lower extremity strength and movement. Continue nasal cannula oxygen supplementation as patient requires. Continue breathing treatments of albuterol/ipratropium. 08/04/2021: Switch to PO furosemide. RT to assess supplemental oxygen need. Continue PT. Qualifiers: Qualified Codes: I50.9 - Heart failure, unspecified (2) Permanent atrial fibrillation Status: Chronic Assessment & Plan: Continue home medications for atrial fibrillation control and DVT prophylaxis; diltiazem 90mg and warfarin. 08/04/2021: check INR (3) Tremor Assessment & Plan: Suspected essential tremor. Some tremor at rest. Tremor is present with activity. Follow-up in out-patient setting. (4) Hypocalcemia Status: Acute Assessment & Plan: Evaluate Mg level, PTH, and phosphate level to determine next steps and/or need for replacement. Monitor renal function. Mg was low at 1.1. Begin replacement with magnesium sulfate/dextrose. Re-check chemistry panel. (5) Hypomagnesemia Status: Acute Assessment & Plan: Replace with magnesium sulfate/dextrose. Re-check chemistry panel. HENNA JACOBSON MD 08/04/21 [id number]: Supervisory-Addendum Brief Verification & Attestation Participated in pt care: history, MDM, physical Personally performed: exam, history, MDM Care discussed with: Medical Student Procedures: n/a Verification and Attestation of Medical Student E/M Service I personally saw patient and repeated history and confirmed physical exam findings. Suleimanix management per Cardiology. I reviewed and verified all information documented by the medical student and made modifications to such information, when appropriate. I personally performed the physical exam and medical decision making. Henna Jacobson, Aug 04, 2021,17:22 KARLOS MOREAU Aug 04, 2021 16:06 HENNA JACOBSON MD Aug 04, 2021 17:22
[2021-08-04] MEDS: ALPRAZolam 0.5 MG (XANAX) TAB PO PRN (20:58)
[2021-08-05] MEDS: RT-ALBUTEROL/IPRATROPIUM 3 ML (DUONEB) VIAL INH SCH ×4 (02:26→21:14)
[2021-08-05 03:55] VITALS: BP 120/61
[2021-08-05] MEDS: inSUlin ASPART (NovoLOG) 1 UNIT/0.01 ML (CHARGE PER UNIT) SC SCH ×4 (06:43→20:50)
[2021-08-05] MEDS: FUROSEMIDE 40 MG/4 ML INJ (LASIX) IV SCH (06:51)
[2021-08-05] MEDS: KCL 20 MEQ TAB (K-DUR) PO SCH (06:52)
[2021-08-05] MEDS: CATHETER FLUSH 10 ML SYR IV SCH ×3 (06:52→21:22)
[2021-08-05 06:58] LABS: BASOPHILS % (AUTO) 0 % (0-10); EOSINOPHILS # (AUTO) 0.3 10^3/uL (0.0-0.3); EOSINOPHILS % (AUTO) 4 % (0-10); HEMATOCRIT 37 % (35-52); HEMOGLOBIN 11.7 g/dL (11.5-16.0); LYMPHOCYTES # (AUTO) 1.6 10^3/uL (1.0-4.0); LYMPHOCYTES % (AUTO) 24 % (12-44); MEAN CORPUSCULAR HEMOGLOBIN 29 pg (25-34); MEAN CORPUSCULAR HGB CONC 32 g/dL (32-36); MEAN CORPUSCULAR VOLUME 90 fL (80-99); MEAN PLATELET VOLUME 9.4 fL (9.0-12.2); MONOCYTES # (AUTO) 0.5 10^3/uL (0.0-1.0); MONOCYTES % (AUTO) 8 % (0-12); NEUTROPHILS # (AUTO) 4.2 10^3/uL (1.8-7.8); NEUTROPHILS % (AUTO) 63 % (42-75); PLATELET COUNT 230 10^3/uL (130-400); WHITE BLOOD COUNT 6.7 10^3/uL (4.3-11.0)
[2021-08-05 07:24] LABS: POTASSIUM 4.1 MMOL/L (3.6-5.0)
[2021-08-05 07:25] LABS: CALCIUM 8.8 MG/DL (8.5-10.1)
[2021-08-05 07:26] LABS: TOTAL PROTEIN 6.2 GM/DL (6.4-8.2)
[2021-08-05 07:28] LABS: BILIRUBIN,TOTAL 0.4 MG/DL (0.1-1.0); INR 3.8 (0.8-1.4)
[2021-08-05 07:30] LABS: CREATININE SERUM 0.76 MG/DL (0.60-1.30)
[2021-08-05 07:33] LABS: MAGNESIUM 1.8 MG/DL (1.6-2.4)
[2021-08-05 08:00] VITALS: BP 139/96
[2021-08-05] MEDS: meTOproloL SUCCINATE 50 MG (TOPROL XL) TAB PO SCH (08:16)
[2021-08-05] MEDS: metFORMIN 500 MG (GLUCOPHAGE) TAB PO SCH ×2 (08:17→18:27)
[2021-08-05] MEDS: ROSUVASTATIN 20 MG (CRESTOR) TABLET PO SCH (08:17)
[2021-08-05] MEDS: lisINopril 20 MG (PRINIVIL) TABLET PO SCH ×2 (08:17→20:55)
[2021-08-05] MEDS: PANTOPRAZOLE 40 MG (PROTONIX) TAB PO SCH (08:17)
--- NOTE | 2021-08-05 10:26 | Progress Note - Hospitalist ---
Subjective HPI/CC On Admission Date Seen by Provider: Aug 05, 2021 Time Seen by Provider: 11:00 Subjective/Events-last exam Patient feels much better Still on oxygen Does not wear oxygen at home at bedside Feels much better Able to walk around Review of Systems General: Fatigue, Malaise Objective Exam Vital Signs Vital Signs Date Time Temp Pulse Resp B/P (MAP) Pulse Ox O2 Delivery O2 Flow Rate FiO2 08/06/21 04:34 36.7 72 20 131/73 (92) 95 Nasal Cannula 1.00 Capillary Refill : Less Than 3 Seconds General Appearance: No Apparent Distress, WD/WN, Chronically ill Respiratory: Lungs Clear, Normal Breath Sounds Cardiovascular: Regular Rate, Rhythm Neurologic/Psychiatric: Alert, Oriented x3, No Motor/Sensory Deficits, Normal Mood/Affect Results/Procedures Lab Laboratory Tests 08/05/21 06:25 Patient resulted labs reviewed. Assessment/Plan Assessment and Plan Assess & Plan/Chief Complaint Assessment: (1) CHF exacerbation Status: Acute Assessment & Plan: Complete an echocardiogram to assess heart function. Begin IV lasix for fluid control. Monitor for urinary retention, insert a sanchez catheter if needed. Monitor blood pressure and peripheral edema. Continue home medications for blood pressure management; metoprolol 50mg and lisinopril 20mg. Begin PT to help with lower extremity strength and movement. Continue nasal cannula oxygen supplementation as patient requires. Continue breathing treatments of albuterol/ipratropium. 08/04/2021: Switch to PO furosemide. RT to assess supplemental oxygen need. Continue PT. Qualifiers: Qualified Codes: I50.9 - Heart failure, unspecified (2) Permanent atrial fibrillation Status: Chronic Assessment & Plan: Continue home medications for atrial fibrillation control and DVT prophylaxis; diltiazem 90mg and warfarin. 08/04/2021: check INR (3) Tremor Assessment & Plan: Suspected essential tremor. Some tremor at rest. Tremor is present with activity. Follow-up in out-patient setting. (4) Hypocalcemia Status: Acute Assessment & Plan: Evaluate Mg level, PTH, and phosphate level to determine next steps and/or need for replacement. Monitor renal function. Mg was low at 1.1. Begin replacement with magnesium sulfate/dextrose. Re-check chemistry panel. (5) Hypomagnesemia Status: Acute Assessment & Plan: Replace with magnesium sulfate/dextrose. Re-check chemistry panel. Plan: Try to wean oxygen Monitor kidney function Discharge plan for tomorrow AZALEA LINDSAY DO Aug 05, 2021 10:26
[2021-08-05 12:00] VITALS: BP 118/57
--- NOTE | 2021-08-05 12:03 | Cardiology Progress Note ---
Progress Note-Cardiology Events since last exam Date Seen by Provider: Aug 05, 2021 Time Seen by Provider: 11:59 Events since last exam I am following her for heart failure. Her peripheral edema is completely re solved. Her breathing is markedly improved. She denies chest pain, palpitations, or syncope. Her main concern now is her tremor which she states started about 1 year ago and has been getting progressively worse. Her primary provider started her on propranolol but this has not been helping. I did not continue the propranolol because she was also taking metoprolol. Dry Vitals Last set of Vitals Signs Vital Signs 08/05/21 08:37 Pulse Ox 95 O2 Delivery Nasal Cannula O2 Flow Rate 2.00 Labs Labs Laboratory Tests 08/05/21 06:25 Exam Vital Signs Vital Signs Date Time Temp Pulse Resp B/P (MAP) Pulse Ox O2 Delivery O2 Flow Rate FiO2 08/05/21 08:37 95 Nasal Cannula 2.00 08/05/21 08:00 36.6 88 18 139/96 (110) Physical Exam General: Alert. No acute distress. She is obese. Eye: No xanthelasma. HENT: Normocephalic. Neck: Jugular venous pressure does not appear elevated. Respiratory: Lungs are clear to auscultation. Respirations are non-labored. Breath sounds are equal. Symmetrical chest wall expansion. Cardiovascular: Normal rate. Irregular rhythm. No murmur. No gallop. No edema. Gastrointestinal: Soft. Normal bowel sounds. Skin: Warm. Dry. Neurologic: Alert and oriented to person, place, time. Cranial nerves 3-11 grossly intact. Resting tremor, worse in the left hand. Psychiatric: Cooperative. Appropriate mood & affect. Labs Laboratory Tests Test 08/04/21 15:22 08/04/21 20:26 08/05/21 05:51 08/05/21 06:25 Range/Units Glucometer 129 H 171 H 76 70-110 MG/DL White Blood Count 6.7 4.3-11.0 10^3/uL Red Blood Count 4.09 3.80-5.11 10^6/uL Hemoglobin 11.7 11.5-16.0 g/dL Hematocrit 37 35-52 % Mean Corpuscular Volume 90 80-99 fL Mean Corpuscular Hemoglobin 29 25-34 pg Mean Corpuscular Hemoglobin Concent 32 32-36 g/dL Red Cell Distribution Width 13.4 10.0-14.5 % Platelet Count 230 130-400 10^3/uL Mean Platelet Volume 9.4 9.0-12.2 fL Immature Granulocyte % (Auto) 0 % Neutrophils (%) (Auto) 63 42-75 % Lymphocytes (%) (Auto) 24 12-44 % Monocytes (%) (Auto) 8 0-12 % Eosinophils (%) (Auto) 4 0-10 % Basophils (%) (Auto) 0 0-10 % Neutrophils # (Auto) 4.2 1.8-7.8 10^3/uL Lymphocytes # (Auto) 1.6 1.0-4.0 10^3/uL Monocytes # (Auto) 0.5 0.0-1.0 10^3/uL Eosinophils # (Auto) 0.3 0.0-0.3 10^3/uL Basophils # (Auto) 0.0 0.0-0.1 10^3/uL Immature Granulocyte # (Auto) 0.0 0.0-0.1 10^3/uL Prothrombin Time 38.0 H 12.2-14.7 SEC INR Comment 3.8 H 0.8-1.4 Sodium Level 141 135-145 MMOL/L Potassium Level 4.1 3.6-5.0 MMOL/L Chloride Level 100 98-107 MMOL/L Carbon Dioxide Level 27 21-32 MMOL/L Anion Gap 14 5-14 MMOL/L Blood Urea Nitrogen 16 7-18 MG/DL Creatinine 0.76 0.60-1.30 MG/DL Estimat Glomerular Filtration Rate 74 BUN/Creatinine Ratio 21 Glucose Level 107 H 70-105 MG/DL Calcium Level 8.8 8.5-10.1 MG/DL Corrected Calcium 8.8 8.5-10.1 MG/DL Magnesium Level 1.8 1.6-2.4 MG/DL Total Bilirubin 0.4 0.1-1.0 MG/DL Aspartate Amino Transf (AST/SGOT) 20 5-34 U/L Alanine Aminotransferase (ALT/SGPT) 13 0-55 U/L Alkaline Phosphatase 61 40-136 U/L Total Protein 6.2 L 6.4-8.2 GM/DL Albumin 4.0 3.2-4.5 GM/DL Test 08/05/21 11:37 Range/Units Glucometer 217 H 70-110 MG/DL Diagnosis/Problems Diagnosis/Problems (1) Acute diastolic congestive heart failure Assessment & Plan: This appears to be a new diagnosis for the patient. She has a normal ejection fraction. Her symptoms now appear to be at baseline. Chest x-ray from 08/04 did not show any pulmonary congestion. I will change her IV furosemide over to oral furosemide at the same dose she was taking at home. From a cardiac standpoint, she is probably ready for discharge once her other conditions have stabilized. (2) Permanent atrial fibrillation Status: Chronic Assessment & Plan: She has permanent atrial fibrillation. Her heart rates appear well-controlled on beta-tony and diltiazem. I recommend she continue the beta-tony and diltiazem for rate control and warfarin for stroke prophy laxis. Her left atrium is severely dilated on her echocardiogram from 08/03/2021 which suggests she would likely not be a good candidate for antiarrhythmic drugs or ablation. I would suggest not discharging her with both metoprolol and propranolol. Since the propranolol has not helped her tremor, I would just discontinue that. (3) Pulmonary hypertension Assessment & Plan: I suspect this is multifactorial due to underlying heart disease, her obesity and likely undiagnosed sleep apnea. This can be followed by her regular cable tender after discharge. (4) Primary hypertension Assessment & Plan: Blood pressures are reasonably well controlled on her outpatient antihypertensive medication. (5) Mixed hyperlipidemia Assessment & Plan: Continue statin medication. (6) Chronic kidney disease, stage 3 Assessment & Plan: Continue AMRITA inhibitor and watch the renal function closely with the intravenous diuretic. Her creatinine actually improved slightly over the past 24 hours. (7) Type 2 diabetes mellitus with complication Assessment & Plan: This will be managed by the hospitalist. (8) Tremor Assessment & Plan: It sounds as though her primary provider may have thought this was essential tremor. However, in light of the worsening tremor accompanied by unstable gait, this raises a concern for possible Parkinson's disease. I suggested to the patient and her that they follow-up with the primary provider in regards to the tremor after discharge. I did not mention Parkinson's disease to the patient or her since this is out of my area of expertise. (9) Obesity Assessment & Plan: She needs to work on weight loss. ALEJANDRO FAULKNER JR, MD Aug 05, 2021 12:03
--- NOTE | 2021-08-05 12:13 | Physical Therapy Daily Note ---
PT Daily Note-Current Subjective Patient sitting in chair with family in the room upon PT arrival. Reports no pain at this time. Transfers SCALE: Activities may be completed with or without assistive devices. 9-Kgonczcvkf-fcqhivj completes the activity by him/herself with no assistance from a helper. 5-Set-up or Clean-up Assistance-helper sets up or cleans up; patient completes activity. Frost assists only prior to or following the activity. 4-Supervision or Touching Assistance-helper provides verbal cues and/or touching/steadying and/or contact guard assistance as patient completes activity. Assistance may be provided throughout the activity or intermittently. 3-Partial/Moderate Assistance-helper does LESS THAN HALF the effort. Frost lifts, holds or supports trunk or limbs, but provides less than half the effort. 2-Substantial/Maximal Assistance-helper does MORE THAN HALF the effort. Frost lifts or holds trunk or limbs and provides more than half the effort. 7-Dtpkkhmzi-opcvdj does ALL the effort. Patient does none of the effort to complete the activity. Or, the assistance of 2 or more helpers is required for the patient to complete the activity. If activity was not attempted, code reason: 7-Patient Refused. 9-Not Applicable-not attempted and the patient did not perform the activity before the current illness, exacerbation or injury. 10-Not Attempted due to Environmental Limitations-(lack of equipment, weather restraints, etc.). 88-Not Attempted due to Medical Conditions or Safety Concerns. Sit to Stand (QC): 5 Chair/Cbe-af-Xvica Xfer(QC): 5 Gait Training Does the Patient Walk?: Yes Distance: 200 feet Walk 10 feet (QC): 5 Walk 50 ft with 2 Turns(QC): 5 Walk 150 ft (QC): 5 Gait Persons Needed: 1 Gait Assistive Device: FWW Assessment Current Status: Good Progress Patient tolerated treatment well and demonstrates improved overall distance. Patient ambulates 200 feet with FWW, with SBA and verbal cues for safety, progression, posture. Patient performs all observed transfers with SBA. Patient in chair post treatment with all needs met, nursing notified, call light in reach and family in the room. PT Search Optimization Analyst Goals Search Optimization Analyst Goals PT Halfway Goals Time Frame: Aug 12, 2021 Roll Left & Right (QC): 6 Sit to Lying (QC): 6 Lying-Sitting on Side/Bed(QC): 6 Sit to Stand (QC): 6 Chair/Jhc-ef-Bvxxx Xfer(QC): 6 Toilet Transfer (QC): 6 Walk 10 feet (QC): 6 Walk 50ft with 2 Turns (QC): 6 Walk 150 ft (QC): 6 PT Plan Treatment/Plan Treatment Plan: Continue Plan of Care Treatment Plan: Bed Mobility, Education, Functional Activity Leo, Functional Strength, Gait, Safety, Therapeutic Exercise, Transfers Treatment Duration: Aug 12, 2021 Frequency: 6 times per week Estimated Hrs Per Day: .25 hour per day Patient and/or Family Agrees t: Yes Safety Risks/Education Patient Education: Gait Training Teaching Recipient: Patient, Family Teaching Methods: Demonstration, Discussion Response to Teaching: Verbalize Understanding, Return Demonstration Time/GCodes Time In: 1104 Time Out: 1114 Total Billed Treatment Time: 10 Total Billed Treatment Visit, gait LEN BOYLE PT Aug 05, 2021 12:13
[2021-08-05 16:01] VITALS: BP 142/67
[2021-08-05 19:52] VITALS: BP 139/65
[2021-08-06] MEDS: ALPRAZolam 0.5 MG (XANAX) TAB PO PRN (00:16)
[2021-08-06 00:20] VITALS: BP 137/75
[2021-08-06] MEDS: RT-ALBUTEROL/IPRATROPIUM 3 ML (DUONEB) VIAL INH SCH ×2 (03:20→09:15)
[2021-08-06 04:34] VITALS: BP 131/73
[2021-08-06] MEDS: KCL 20 MEQ TAB (K-DUR) PO SCH (05:50)
[2021-08-06] MEDS: inSUlin ASPART (NovoLOG) 1 UNIT/0.01 ML (CHARGE PER UNIT) SC SCH ×2 (05:50→11:00)
[2021-08-06] MEDS: CATHETER FLUSH 10 ML SYR IV SCH (05:51)
[2021-08-06 06:33] LABS: BASOPHILS % (AUTO) 1 % (0-10); EOSINOPHILS # (AUTO) 0.2 10^3/uL (0.0-0.3); EOSINOPHILS % (AUTO) 3 % (0-10); HEMATOCRIT 34 % (35-52); HEMOGLOBIN 10.8 g/dL (11.5-16.0); LYMPHOCYTES # (AUTO) 1.5 10^3/uL (1.0-4.0); LYMPHOCYTES % (AUTO) 24 % (12-44); MEAN CORPUSCULAR HEMOGLOBIN 28 pg (25-34); MEAN CORPUSCULAR HGB CONC 32 g/dL (32-36); MEAN CORPUSCULAR VOLUME 89 fL (80-99); MEAN PLATELET VOLUME 9.6 fL (9.0-12.2); MONOCYTES # (AUTO) 0.5 10^3/uL (0.0-1.0); MONOCYTES % (AUTO) 8 % (0-12); NEUTROPHILS # (AUTO) 4.1 10^3/uL (1.8-7.8); NEUTROPHILS % (AUTO) 64 % (42-75); PLATELET COUNT 201 10^3/uL (130-400); WHITE BLOOD COUNT 6.5 10^3/uL (4.3-11.0)
--- NOTE | 2021-08-06 06:39 | Progress Note - Hospitalist ---
Subjective HPI/CC On Admission Date Seen by Provider: Aug 06, 2021 Objective Exam Vital Signs Vital Signs Date Time Temp Pulse Resp B/P (MAP) Pulse Ox O2 Delivery O2 Flow Rate FiO2 08/06/21 11:03 36.6 55 20 121/76 (91) 96 Room Air 08/06/21 07:30 1.00 Capillary Refill : Less Than 3 Seconds Results/Procedures Lab Laboratory Tests 08/06/21 06:15 Patient resulted labs reviewed. Assessment/Plan Assessment and Plan Assess & Plan/Chief Complaint Assessment: (1) CHF exacerbation Status: Acute Assessment & Plan: Complete an echocardiogram to assess heart function. Begin IV lasix for fluid control. Monitor for urinary retention, insert a sanchez catheter if needed. Monitor blood pressure and peripheral edema. Continue home medications for blood pressure management; metoprolol 50mg and lisinopril 20mg. Begin PT to help with lower extremity strength and movement. Continue nasal cannula oxygen supplementation as patient requires. Continue breathing treatments of albuterol/ipratropium. 08/04/2021: Switch to PO furosemide. RT to assess supplemental oxygen need. Continue PT. Qualifiers: Qualified Codes: I50.9 - Heart failure, unspecified (2) Permanent atrial fibrillation Status: Chronic Assessment & Plan: Continue home medications for atrial fibrillation control and DVT prophylaxis; diltiazem 90mg and warfarin. 08/04/2021: check INR (3) Tremor Assessment & Plan: Suspected essential tremor. Some tremor at rest. Tremor is present with activity. Follow-up in out-patient setting. (4) Hypocalcemia Status: Acute Assessment & Plan: Evaluate Mg level, PTH, and phosphate level to determine next steps and/or need for replacement. Monitor renal function. Mg was low at 1.1. Begin replacement with magnesium sulfate/dextrose. Re-check chemistry panel. (5) Hypomagnesemia Status: Acute Assessment & Plan: Replace with magnesium sulfate/dextrose. Re-check chemistry panel. Plan: Try to wean oxygen Monitor kidney function Discharge plan for tomorrow AZALEA LINDSAY DO Aug 06, 2021 06:39
[2021-08-06 06:42] LABS: ALBUMIN 3.8 GM/DL (3.2-4.5)
[2021-08-06 06:43] LABS: POTASSIUM 4.6 MMOL/L (3.6-5.0)
[2021-08-06 06:44] LABS: CALCIUM 8.7 MG/DL (8.5-10.1)
[2021-08-06 06:47] LABS: BILIRUBIN,TOTAL 0.4 MG/DL (0.1-1.0)
[2021-08-06 06:49] LABS: CREATININE SERUM 0.78 MG/DL (0.60-1.30)
[2021-08-06 07:30] VITALS: BP 140/78
[2021-08-06] MEDS: lisINopril 20 MG (PRINIVIL) TABLET PO SCH (08:54)
[2021-08-06] MEDS: metFORMIN 500 MG (GLUCOPHAGE) TAB PO SCH (08:54)
[2021-08-06] MEDS: PANTOPRAZOLE 40 MG (PROTONIX) TAB PO SCH (08:54)
[2021-08-06] MEDS: meTOproloL SUCCINATE 50 MG (TOPROL XL) TAB PO SCH (08:55)
[2021-08-06] MEDS: ROSUVASTATIN 20 MG (CRESTOR) TABLET PO SCH (08:55)
[2021-08-06] MEDS ORDERED: FUROSEMIDE 40 MG (LASIX) TAB PO SCH (09:00)
--- NOTE | 2021-08-06 10:55 | Cardiology Progress Note ---
Progress Note-Cardiology Events since last exam Date Seen by Provider: Aug 06, 2021 Time Seen by Provider: 10:50 Events since last exam I am following her for heart failure and permanent atrial fibrillation. She normally follows with a software verification engineer in [place], [place]. She is now off supplemental oxygen. Her lower extremity edema has resolved. She wants to go home. She tells me she has been taking short acting diltiazem for the past several years ever since her most recent cardioversion which was not successful. She does not have trouble swallowing pills and would prefer to take this all once a day if possible. She denies chest pain, dyspnea at rest, palpitations, or syncope. Certain portions of this document may have been dictated utilizing voice recognition technology. Inherent to this technology, typographical and grammatical errors may exist. As much as I am diligent to identify and correct these mistakes, some errors may remain in the document. Vitals Last set of Vitals Signs Vital Signs 08/06/21 08/06/21 07:30 09:29 Temp 36.6 Pulse 80 Resp 20 B/P (MAP) 140/78 (98) Pulse Ox 95 O2 Delivery Room Air O2 Flow Rate 1.00 Labs Labs Laboratory Tests 08/06/21 06:15 Exam Vital Signs Vital Signs Date Time Temp Pulse Resp B/P (MAP) Pulse Ox O2 Delivery O2 Flow Rate FiO2 08/06/21 09:29 95 Room Air 08/06/21 07:30 36.6 80 20 140/78 (98) 1.00 Physical Exam General: Alert. No acute distress. She is obese. She is tremulous but somewhat improved from 08/05. Eye: No xanthelasma. HENT: Normocephalic. Neck: Jugular venous pressure does not appear elevated. Respiratory: Lungs are clear to auscultation. Respirations are non-labored. Breath sounds are equal. Symmetrical chest wall expansion. Cardiovascular: Normal rate. Irregular rhythm. No murmur. No gallop. No edema. Gastrointestinal: Soft. Normal bowel sounds. Skin: Warm. Dry. Neurologic: Alert and oriented to person, place, time. Cranial nerves 3-11 grossly intact. Psychiatric: Cooperative. Appropriate mood & affect. Labs Laboratory Tests Test 08/05/21 11:37 08/05/21 15:58 08/05/21 16:45 08/05/21 17:50 Range/Units Glucometer 217 H 32 *L 68 L 138 H 70-110 MG/DL Test 08/05/21 20:48 08/05/21 23:49 08/06/21 05:29 08/06/21 06:15 Range/Units Glucometer 137 H 106 136 H 70-110 MG/DL White Blood Count 6.5 4.3-11.0 10^3/uL Red Blood Count 3.80 3.80-5.11 10^6/uL Hemoglobin 10.8 L 11.5-16.0 g/dL Hematocrit 34 L 35-52 % Mean Corpuscular Volume 89 80-99 fL Mean Corpuscular Hemoglobin 28 25-34 pg Mean Corpuscular Hemoglobin Concent 32 32-36 g/dL Red Cell Distribution Width 13.3 10.0-14.5 % Platelet Count 201 130-400 10^3/uL Mean Platelet Volume 9.6 9.0-12.2 fL Immature Granulocyte % (Auto) 1 % Neutrophils (%) (Auto) 64 42-75 % Lymphocytes (%) (Auto) 24 12-44 % Monocytes (%) (Auto) 8 0-12 % Eosinophils (%) (Auto) 3 0-10 % Basophils (%) (Auto) 1 0-10 % Neutrophils # (Auto) 4.1 1.8-7.8 10^3/uL Lymphocytes # (Auto) 1.5 1.0-4.0 10^3/uL Monocytes # (Auto) 0.5 0.0-1.0 10^3/uL Eosinophils # (Auto) 0.2 0.0-0.3 10^3/uL Basophils # (Auto) 0.0 0.0-0.1 10^3/uL Immature Granulocyte # (Auto) 0.0 0.0-0.1 10^3/uL Sodium Level 138 135-145 MMOL/L Potassium Level 4.6 3.6-5.0 MMOL/L Chloride Level 101 98-107 MMOL/L Carbon Dioxide Level 27 21-32 MMOL/L Anion Gap 10 5-14 MMOL/L Blood Urea Nitrogen 16 7-18 MG/DL Creatinine 0.78 0.60-1.30 MG/DL Estimat Glomerular Filtration Rate 72 BUN/Creatinine Ratio 21 Glucose Level 139 H 70-105 MG/DL Calcium Level 8.7 8.5-10.1 MG/DL Corrected Calcium 8.9 8.5-10.1 MG/DL Total Bilirubin 0.4 0.1-1.0 MG/DL Aspartate Amino Transf (AST/SGOT) 29 5-34 U/L Alanine Aminotransferase (ALT/SGPT) 23 0-55 U/L Alkaline Phosphatase 72 40-136 U/L Total Protein 6.0 L 6.4-8.2 GM/DL Albumin 3.8 3.2-4.5 GM/DL Diagnosis/Problems Diagnosis/Problems (1) Acute diastolic congestive heart failure Assessment & Plan: This appears to be a new diagnosis for the patient. She has a normal ejection fraction. Her symptoms now appear to be at baseline. She is off oxygen. Chest x-ray from 08/04 did not show any pulmonary congestion. I changed her IV furosemide over to oral furosemide at the same dose she was taking at home on 08/05. From a cardiac standpoint, she is probably ready for discharge. She should be scheduled to see her primary provider later this week and her software verification engineer in August. (2) Permanent atrial fibrillation Status: Chronic Assessment & Plan: She has permanent atrial fibrillation. Her heart rates appear well-controlled on beta-tony and diltiazem. I recommend she continue the beta-tony and diltiazem for rate control. She was taking both metoprolol and propranolol at home. I will stop the propranolol. I will change her diltiazem over to once daily dosing with the first dose to be given today. She should continue warfarin for stroke prophylaxis. She had been on apixaban in the past but developed severe hematuria of unclear etiology and was changed over to warfarin several years ago. Her left atrium is severely dilated on her echocardiogram from 08/03/2021 which suggests she would likely not be a good candidate for antiarrhythmic drugs or ablation. (3) Primary hypertension Assessment & Plan: Blood pressures are reasonably well controlled on her outpatient antihypertensive medication. As above, I discontinued the propranolol since she was also taking metoprolol. I have also changed the diltiazem over to once daily dosing. I will take the liberty of sending a new prescription to her pharmacy for diltiazem CD (4) Pulmonary hypertension Assessment & Plan: I suspect this is multifactorial due to underlying heart disease, her obesity and likely undiagnosed sleep apnea. This can be followed by her regular software verification engineer after discharge. (5) Mixed hyperlipidemia Assessment & Plan: Continue statin medication. (6) Chronic kidney disease, stage 3 Assessment & Plan: Her creatinine has stabilized. (7) Type 2 diabetes mellitus with complication Assessment & Plan: This will be managed by the hospitalist. (8) Tremor Assessment & Plan: It sounds as though her primary provider may have thought this was essential tremor. However, in light of the worsening tremor accompanied by unstable gait, this raises a concern for possible Parkinson's disease. I suggested to the patient and her that they follow-up with the primary provider in regards to the tremor after discharge. I did not mention Parkinson's disease to the patient or her since this is out of my area of expertise. (9) Obesity Assessment & Plan: She needs to work on weight loss. ALEJANDRO FAULKNER JR, MD Aug 06, 2021 10:55
[2021-08-06] MEDS ORDERED: DILT180C85 PO (10:57)
[2021-08-06 11:03] VITALS: BP 121/76
[2021-08-06] MEDS ORDERED: WARF4TAB3 PO (12:51)
[2021-08-06] MEDS ORDERED: GLIP10TA13 PO (12:51)
[2021-08-06] MEDS ORDERED: WARF-48 PO (12:51)
--- NOTE | 2021-08-06 12:51 | Discharge Summary ---
Discharge Summary Hospital Course Was the Problem List Reviewed?: Yes Problems/Dx: (1) Acute diastolic congestive heart failure (2) Permanent atrial fibrillation Status: Chronic (3) Primary hypertension (4) Pulmonary hypertension (5) Mixed hyperlipidemia (6) Chronic kidney disease, stage 3 (7) Type 2 diabetes mellitus with complication (8) Tremor (9) Obesity Hospital Course Date of Admission: Aug 02, 2021 at 19:45 Admission Diagnosis : Family Physician/Provider: Yao Hodge MD Date of Discharge: 08/06/21 Discharge Diagnosis: AECHF, AF, Coagulopathy due to warfarin Hospital Course: Hospital course: Patient had a uneventful 5-day hospital course when she was admitted for congestive heart failure exacerbation. She was diuresed and cardiology evaluated her. INR was elevated requiring Coumadin hold. Patient was weaned off oxygen and did not require that when she went home. Medication changes made by cardiology and patient was ready for discharge. Labs and Pending Lab Test: Laboratory Tests 08/05/21 15:58: Glucometer 32*L 08/05/21 16:45: Glucometer 68L 08/05/21 17:50: Glucometer 138H 08/05/21 20:48: Glucometer 137H 08/05/21 23:49: Glucometer 106 08/06/21 05:29: Glucometer 136H 08/06/21 06:15: White Blood Count 6.5, Red Blood Count 3.80, Hemoglobin 10.8L, Hematocrit 34L, Mean Corpuscular Volume 89, Mean Corpuscular Hemoglobin 28, Mean Corpuscular Hemoglobin Concent 32, Red Cell Distribution Width 13.3, Platelet Count 201, Mean Platelet Volume 9.6, Immature Granulocyte % (Auto) 1, Neutrophils (%) (Auto) 64, Lymphocytes (%) (Auto) 24, Monocytes (%) (Auto) 8, Eosinophils (%) (Auto) 3, Basophils (%) (Auto) 1, Neutrophils # (Auto) 4.1, Lymphocytes # (Auto) 1.5, Monocytes # (Auto) 0.5, Eosinophils # (Auto) 0.2, Basophils # (Auto) 0.0, Immature Granulocyte # (Auto) 0.0, Sodium Level 138, Potassium Level 4.6, Chloride Level 101, Carbon Dioxide Level 27, Anion Gap 10, Blood Urea Nitrogen 16, Creatinine 0.78, Estimat Glomerular Filtration Rate 72, BUN/Creatinine Ratio 21, Glucose Level 139H, Calcium Level 8.7, Corrected Calcium 8.9, Total Bilirubin 0.4, Aspartate Amino Transf (AST/SGOT) 29, Alanine Aminotransferase (ALT/SGPT) 23, Alkaline Phosphatase 72, Total Protein 6.0L, Albumin 3.8 08/06/21 11:02: Glucometer 153H Home Meds Active Diltiazem 24Hr ER (Diltiazem HCl) 180 Mg Cap.er.24h 360 Mg PO DAILY Reported Tylenol Extra Strength (Acetaminophen) 500 Mg Tablet 1,000 Mg PO Q8H PRN Citracal-Vit D 250 mg-200 Tab (Calcium Citrate/Vitamin D3) 1 Each Tablet 1 Each PO BID Proventil Hfa (Albuterol Sulfate) 6.7 Gm Hfa.aer.ad 2 Puff INH Q6H PRN Fish Oil Franklin-3 Softgel (Franklin-3S/Dha/Epa/Fish Oil) 1 Each Capsule.dr 1 Each PO BID Warfarin Sodium 4 Mg Tablet 2 Mg PO 1800 TAKES (4MG) TABS +5MG TO EQUAL 7MG Warfarin Sodium 5 Mg Tablet 5 Mg PO 1800 TAKES (4MG) TABS +5MG TO EQUAL 7MG Levemir Flextouch (Insulin Detemir) 100 Unit/1 Ml Insuln.pen 40 Units SQ HS Diphenhydramine HCl 25 Mg Tablet 25 Mg PO BID PRN Coq-10 (Ubidecarenone) 100 Mg Capsule 100 Mg PO DAILY Sennosides-Docusate Sodium Tab (Sennosides/Docusate Sodium) 1 Each Tablet 1-2 Ea PO DAILY PRN Pantoprazole Sodium 40 Mg Tablet.dr 40 Mg PO DAILY Metoprolol Succinate 50 Mg Tab.er.24h 50 Mg PO DAILY Rosuvastatin Calcium 20 Mg Tablet 20 Mg PO DAILY Furosemide 40 Mg Tablet 40 Mg PO DAILY Lisinopril 20 Mg Tablet 20 Mg PO BID Diltiazem HCl 90 Mg Tablet 90 Mg PO QID Alprazolam 0.5 Mg Tablet 0.5 Mg PO TID PRN Propranolol HCl 20 Mg Tablet 20 Mg PO TID Metformin HCl 500 Mg Tablet 1,000 Mg PO BID TAKES 2 (500MG) TABS Glipizide 10 Mg Tablet 10 Mg PO BID WITH MEALS Assessment/Pt Instructions Dr Hodge tomorrow Discharge Planning: <30 minutes discharge planning Discharge Instructions Discharge Diet: Cardiac Diet Discharge Physical Examination Vital Signs Vital Signs Date Time Temp Pulse Resp B/P (MAP) Pulse Ox O2 Delivery O2 Flow Rate FiO2 08/06/21 11:03 36.6 55 20 121/76 (91) 96 Room Air 08/06/21 07:30 1.00 General Appearance: No Apparent Distress, WD/WN, Chronically ill Respiratory: Lungs Clear Allergies: Coded Allergies: acetaminophen (Verified Allergy, Unknown, Shortness of Breath, 08/02/21) hydrocodone (Verified Allergy, Unknown, Shortness of Breath, 08/02/21) levofloxacin (Verified Allergy, Unknown, Shortness of Breath, 08/02/21) Nausea/vomiting, SOB propoxyphene (Verified Allergy, Unknown, Shortness of Breath, 08/02/21) codeine (Verified Adverse Reaction, Unknown, Nausea, 08/02/21) Nausea and Vomiting cyclobenzaprine (Verified Adverse Reaction, Unknown, Vomiting, 08/02/21) Nausea/Vomiting oxycodone (Verified Adverse Reaction, Unknown, Shortness of Breath, 08/02/21) Nausea/Vomiting Uncoded Allergies: IVP DYE (Allergy, Unknown, Anaphylaxis, 08/02/21) Tramado (Adverse Reaction, Unknown, Vomiting, 08/02/21) Nausea/Vomiting Discharge Summary Date of Admission Aug 02, 2021 at 19:45 Date of Discharge Discharge Date: Aug 06, 2021 Discharge Diagnosis Assessment: (1) CHF exacerbation Status: Acute Assessment & Plan: Complete an echocardiogram to assess heart function. Begin IV lasix for fluid control. Monitor for urinary retention, insert a sanchez catheter if needed. Monitor blood pressure and peripheral edema. Continue home medications for blood pressure management; metoprolol 50mg and lisinopril 20mg. Begin PT to help with lower extremity strength and movement. Continue nasal cannula oxygen supplementation as patient requires. Continue breathing treatments of albuterol/ipratropium. 08/04/2021: Switch to PO furosemide. RT to assess supplemental oxygen need. Continue PT. Qualifiers: Qualified Codes: I50.9 - Heart failure, unspecified (2) Permanent atrial fibrillation Status: Chronic Assessment & Plan: Continue home medications for atrial fibrillation control and DVT prophylaxis; diltiazem 90mg and warfarin. 08/04/2021: check INR (3) Tremor Assessment & Plan: Suspected essential tremor. Some tremor at rest. Tremor is present with activity. Follow-up in out-patient setting. (4) Hypocalcemia Status: Acute Assessment & Plan: Evaluate Mg level, PTH, and phosphate level to determine next steps and/or need for replacement. Monitor renal function. Mg was low at 1.1. Begin replacement with magnesium sulfate/dextrose. Re-check chemistry panel. (5) Hypomagnesemia Status: Acute Assessment & Plan: Replace with magnesium sulfate/dextrose. Re-check chemistry panel. Plan: Try to wean oxygen Monitor kidney function Discharge plan for tomorrow (1) Acute diastolic congestive heart failure Assessment & Plan: This appears to be a new diagnosis for the patient. She has a normal ejection fraction. Her symptoms now appear to be at baseline. She is off oxygen. Chest x-ray from 08/04 did not show any pulmonary congestion. I changed her IV furosemide over to oral furosemide at the same dose she was taking at home on 08/05. From a cardiac standpoint, she is probably ready for discharge. She should be scheduled to see her primary provider later this week and her lead engineer in August. (2) Permanent atrial fibrillation Status: Chronic Assessment & Plan: She has permanent atrial fibrillation. Her heart rates appear well-controlled on beta-tony and diltiazem. I recommend she continue the beta-tony and diltiazem for rate control. She was taking both metoprolol and propranolol at home. I will stop the propranolol. I will change her diltiazem over to once daily dosing with the first dose to be given today. She should continue warfarin for stroke prophylaxis. She had been on apixaban in the past but developed severe hematuria of unclear etiology and was changed over to warfarin several years ago. Her left atrium is severely dilated on her echocardiogram from 08/03/2021 which suggests she would likely not be a good candidate for antiarrhythmic drugs or ablation. (3) Primary hypertension Assessment & Plan: Blood pressures are reasonably well controlled on her outpatient antihypertensive medication. As above, I discontinued the propranolol since she was also taking metoprolol. I have also changed the diltiazem over to once daily dosing. I will take the liberty of sending a new prescription to her pharmacy for diltiazem CD (4) Pulmonary hypertension Assessment & Plan: I suspect this is multifactorial due to underlying heart disease, her obesity and likely undiagnosed sleep apnea. This can be followed by her regular lead engineer after discharge. (5) Mixed hyperlipidemia Assessment & Plan: Continue statin medication. (6) Chronic kidney disease, stage 3 Assessment & Plan: Her creatinine has stabilized. (7) Type 2 diabetes mellitus with complication Assessment & Plan: This will be managed by the hospitalist. (8) Tremor Assessment & Plan: It sounds as though her primary provider may have thought this was essential tremor. However, in light of the worsening tremor accompanied by unstable gait, this raises a concern for possible Parkinson's disease. I suggested to the patient and her that they follow-up with the primary provider in regards to the tremor after discharge. I did not mention Parkinson's disease to the patient or her since this is out of my area of expertise. (9) Obesity Assessment & Plan: She needs to work on weight loss. AZALEA LINDSAY DO Aug 06, 2021 12:51
== END 2021-08-06 13:30 | disposition home or self-care (01) | DRG 291 ==
LOC: EDUNIT# 17:37 → ER FS 17:38 → 4TH 19:45
PROVIDERS: ADMIT Family Medicine; ATTEND Internal Medicine
DX: I13.0 Hypertensive heart and chronic kidney disease with heart failure and stage 1 through stage 4 chronic kidney disease, or unspecified chronic kidney disease (principal); I50.31 Acute diastolic (congestive) heart failure; J96.01 Acute respiratory failure with hypoxia; I48.21 Permanent atrial fibrillation; E66.9 Obesity, unspecified; I27.20 Pulmonary hypertension, unspecified; I34.0 Nonrheumatic mitral (valve) insufficiency; E78.2 Mixed hyperlipidemia; N18.30 Chronic kidney disease, stage 3 unspecified; E11.22 Type 2 diabetes mellitus with diabetic chronic kidney disease; G25.0 Essential tremor; E83.42 Hypomagnesemia; E83.51 Hypocalcemia; T45.515A Adverse effect of anticoagulants, initial encounter; Z79.84 Long term (current) use of oral hypoglycemic drugs; Z79.899 Other long term (current) drug therapy; Z79.4 Long term (current) use of insulin; Z91.041 Radiographic dye allergy status; Z88.5 Allergy status to narcotic agent; Z88.6 Allergy status to analgesic agent; Z88.8 Allergy status to other drugs, medicaments and biological substances; Z68.35 Body mass index [BMI] 35.0-35.9, adult
CPT/HCPCS: 36415; 71046; 80048; 80053; 82947; 83735; 83880; 83970; 84100; 84484; 85025; 85027; 85610; 85730; 93005; 93041; 93306; 94640; 94664; 94760; 94761